=== PATIENT | male | born 1980 | race Caucasian/White ===

== ENCOUNTER 2020-04-12 19:43 | Observation (INO) ==
[2020-04-12] MEDS ORDERED: SODIUM CHLORIDE 0.9% 1000ML 1,000 ML IV ONE (20:10)
[2020-04-12] MEDS ORDERED: PROMETHAZINE 12.5 MG/50.5 ML BAG IV STA (20:10)
[2020-04-12] MEDS ORDERED: cefTRIAXone SODIUM 2,000 MG/70 ML BAG IV STA (20:10)
[2020-04-12] MEDS ORDERED: KETOROLAC TROMETHAMINE 15 MG/ML VIAL IV ONE (20:10)
[2020-04-12 20:21] LABS: Basophils # (auto) 0.04 K/uL (0-0.2); Basophils % (auto) 0.2 %; Eosinophils # (auto) 0.19 K/uL (0-0.5); Hematocrit (blood only) 47.5 % (42-52); Hemoglobin 15.6 g/dL (14.0-18.0); Immature Granulocytes # (auto) 0.07 K/uL (0.00-0.02); Immature Granulocytes % (auto) 0.4 %; Lymphocytes # (auto) 3.11 K/uL (1.2-3.4); Lymphocytes % (auto) 16.9 %; Mean Corpuscular Hemoglobin 29.7 pg (25-34); Mean Corpuscular Hgb Conc 32.8 g/dL (32-36); Mean Corpuscular Volume 90.3 fL (80-100); Mean Platelet Volume 10.7 fL (7.4-10.4); Monocytes # (auto) 1.02 K/uL (0.11-0.59); Monocytes % (auto) 5.6 %; Neutrophils # (auto) 13.93 K/uL (1.4-6.5); Neutrophils % (auto) 75.9 %; Platelet Count 356 K/uL (130-400); RDW Coefficient of Variation 13.7 % (11.5-14.5); RDW Standard Deviation 45.5 fL (36.4-46.3); Red Blood Count 5.26 M/uL (4.7-6.1); White Blood Count 18.36 K/uL (4.8-10.8)
--- NOTE | 2020-04-12 20:26 | Emergency Department Note ---
Impression & Plan Meningitis, Headache, Fever ED Provider Note NAME: ABHINAV GARCIA AGE: 39 SEX: M : 1980 ARRIVES VIA: Walk-In INFORMANT: Patient, ED PROVIDER(S): Dr. Micky Delgado CHIEF COMPLAINT: Headache HPI: The patient is a 39-year-old male who presented to the emergency department for an evaluation of a headache and fever. 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 He has had 4 episodes previous to this. He also co mplains of cough. He complains of generalized weakness and severe headache. He also states he has headache which is worsened with bending his neck. He complains of generalized body aches as well. He states the symptoms began yesterday and worsened throughout the day. He has been taking medication for fever such as [id number] ibuprofen and acetaminophen with some relief of his symptoms. The patient has no exposure to COVID-19 as far as he knows. He denies having any dysuria or frequency. He denies having any abdominal pain. The patient was not seen by provider prior to coming to the emergency department. He complains of photophobia as well. He describes the pain as "all over". ROS: See above HPI for pertinent positives & negatives. A total of 10 systems reviewed and were otherwise negative. PAST MEDICAL HISTORY: See Below PAST SURGICAL HISTORY: See Below FAMILY HISTORY: See Below SOCIAL HISTORY: See Below HOME MEDICATIONS: See Below ALLERGIES: See Below VITALS: See Below PHYSICAL EXAMINATION: GENERAL: The patient is awake and alert. He is very anxious appearing and appears to be in significant pain. EYES: The conjunctivae are clear. The pupils are round and reactive. EARS, NOSE, MOUTH AND THROAT: The nose is without any evidence of any deformity. NECK: The neck is nontender and supple. RESPIRATORY: Normal respiratory effort is noted there is no evidence of wheezing rhonchi or rales CARDIOVASCULAR: Regular rate and rhythm noted there no murmurs rubs or gallops normal S1 normal S2. GASTROINTESTINAL: The abdomen is soft. Abdomen is nontender. MUSCULOSKELETAL/EXTREMITIES: There is no evidence of gross deformity full range of motion is noted in the hips and shoulders. SKIN: There is no obvious evidence of any rash. There are no petechiae, pallor or cyanosis noted. NEUROLOGIC: Patient is awake alert and oriented x3 strength is symmetric patellar reflexes are 2+ bilaterally MEDICAL DECISION MAKING: The patient is a 39-year-old male who presented to the emergency department for an evaluation of headache and fever. The patient started having symptoms yesterday. He started having neck stiffness and body aches. The patient has a history of meningitis in the past. He recognized symptoms today is consistent with previous episodes of meningitis. For this reason he was initially treated with IV antibiotics IV Decadron IV fluids and IV pain medication. He was reevaluated multiple times. CT the head showed no acute disease. For this reason lumbar puncture was obtained. Lumbar puncture appears to be consistent with meningitis with an elevated white blood cell count in the CSF. There is also very elevated protein in the CSF. For this reason I feel this could be re lated to viral meningitis again but the patient was still having very severe headache despite treatment. For this reason I will discuss this case with the on-call [facility] hospitalist group. I discussed this with the patient and he was agreeable. Triage Nursing notes reviewed. Prior medical records reviewed Vital Signs: reviewed and remarkable for fever. Differential diagnosis: Migraine headache, meningitis, sinusitis, CO exposure, ICH, SAH, infection, tumor, headache, sinus thrombosis, arterial dissection, as well as other pathologies. ER treatment provided: See below Diagnostics interpreted by me: ECG: EKG was obtained in the emergency department. My interpretation is normal sinus rhythm at 93 bpm. There is no ectopy. There was no acute ST segment abnormalities noted. No previous tracing was available. Cardiac Monitoring: An order was placed for continuous cardiac monitoring. The monitor shows a rate of 75 beats per minute with sinus rhythm. Laboratory studies: As stated above and show below. Imaging studies: See below Consultation(s): [id number]: I discussed this case with Dr. John. ED COURSE: Procedures: Lumbar Puncture Indication: Fever and headache. Verbal consent was obtained after the risks and benefits were explained, including but not limited to headache, bleeding/clotting, scarring, infection, pain, and bone/joint/nerve damage. At this time, the risks of the procedure are less than the risks of NOT performing the procedure. A time out was taken and the correct patient and site identified. The patient was placed in the seated position and the back was prepped with betadine and draped in the standard fashion. The L3 intervertebral space was identified, anesthetized locally with 1% lidocaine without epinephrine, and the spinal needle was inserted through the skin with the bevel parallel to the dural fibers. The needle was carefully advanced into the lumbar cistern and 4 tubes of clear CSF was obtained. The stylet was replaced and the needle was removed. A bandaid was placed and the patient was placed in the supine position. The patient tolerated the procedure well and there were no complications. PDMP:reviewed and no issues Critical Care: I have personally spent greater than 45 minutes of critical care time in the direct management of this patient. This includes bedside care, interpretation of diagnostic studies, and testing, discussion with consultants, patient, and family members, and other required patient management activities. This 45 minutes is in excess of all separately billable procedures. Past Med/Surg History Medical History Viral meningitis Social History Smoking Status: Current every day smoker Preferred Language: Martiniquais Allergies Allergies Allergy/AdvReac Type Severity Reaction Status Date / Time No Known Allergies Allergy Verified 04/12/20 20:29 Home Meds Home Medications Medication Instructions Recorded Confirmed No Known Home Medications 04/12/20 04/12/20 Results & Data (ED) Vital Signs Vital Signs - 24 hr 04/12/20 19:47 04/12/20 20:18 04/12/20 21:30 Temperature 38.2 C H Temperature Source Oral Pulse Rate 113 H 70 Pulse Rate [Right Finger] 73 Pulse Rhythm Regular Respiratory Rate 18 16 Respiratory Effort / Characteristics Non-Labored Spontaneous Respiratory Depth Normal Respiratory Pattern Regular Blood Pressure 163/94 H Blood Pressure [Right Arm] 114/60 Blood Pressure Mean 117 Blood Pressure Mean [Right Arm] 78 Blood Pressure Position Sitting Blood Pressure Position [Right Arm] Lying Pulse Oximetry 97 94 98 Oxygen Delivery Method Room Air Room Air Room Air Sepsis Recent Fever Within 48 Hours Yes Sepsis New/Unexplained Change in Mental Status No Sepsis Action Taken by Nursing No Action Required 04/12/20 23:00 Temperature Temperature Source Pulse Rate Pulse Rate [Right Finger] 70 Pulse Rhythm Respiratory Rate 16 Respiratory Effort / Characteristics Respiratory Depth Respiratory Pattern Blood Pressure Blood Pressure [Right Arm] 115/67 Blood Pressure Mean Blood Pressure Mean [Right Arm] 83 Blood Pressure Position Blood Pressure Position [Right Arm] Lying Pulse Oximetry 96 Oxygen Delivery Method Room Air Sepsis Recent Fever Within 48 Hours Sepsis New/Unexplained Change in Mental Status Sepsis Action Taken by [facility] Medications Current Medication List: was personally reviewed by me Laboratory Data Attestation: I reviewed the patient's lab results. Result diagrams: 04/12/20 20:03 04/12/20 20:03 Lab Results 04/12/20 04/12/20 04/12/20 Range/Units 20:03 20:03 20:03 WBC 18.36 H (4.8-10.8) K/uL RBC 5.26 (4.7-6.1) M/uL Hgb 15.6 (14.0-18.0) g/dL Hct 47.5 (42-52) % MCV 90.3 (80-100) fL MCH 29.7 (25-34) pg MCHC 32.8 (32-36) g/dL RDW Std Deviation 45.5 (36.4-46.3) fL RDW Coeff of Lili 13.7 (11.5-14.5) % Plt Count 356 (130-400) K/uL MPV 10.7 H (7.4-10.4) fL Immature Gran % (Auto) 0.4 % Neut % (Auto) 75.9 % Lymph % (Auto) 16.9 % [place] % (Auto) 5.6 % Eos % (Auto) 1.0 % Baso % (Auto) 0.2 % Neut # (Auto) 13.93 H (1.4-6.5) K/uL Lymph # (Auto) 3.11 (1.2-3.4) K/uL [place] # (Auto) 1.02 H (0.11-0.59) K/uL Eos # (Auto) 0.19 (0-0.5) K/uL Baso # (Auto) 0.04 (0-0.2) K/uL Immature Gran # (Auto) 0.07 H (0.00-0.02) K/uL PT 10.6 (9.0-12.0) Seconds INR 1.0 (0.9-1.1) APTT 26.9 (21.0-31.0) Seconds PTT Ratio 1.0 Sodium 138 (136-145) mmol/L Potassium 4.0 (3.5-5.1) mmol/L Chloride 108 H (98-107) mmol/L Carbon Dioxide 26 (21-32) mmol/L Anion Gap 4.0 (3-11) BUN 11 (7-18) mg/dl Creatinine 1.04 (0.6-1.4) mg/dl Est Cr Clr Drug Dosing 111.2 ml/min Est GFR ( Amer) 102.9 Est GFR (Non-Af Amer) 88.8 BUN/Creatinine Ratio 10.6 (10-20) Glucose 110 H (70-99) mg/dl Lactate (0.4-2.0) mmol/L Calcium 9.5 (8.5-10.1) mg/dl Magnesium 1.8 (1.8-2.4) mg/dl Total Bilirubin 0.5 (0.2-1) mg/dl AST 17 (15-37) U/L ALT 30 (12-78) U/L Alkaline Phosphatase 74 (45-117) U/L Troponin I < 0.015 (0-0.045) ng/ml Total Protein 7.8 (6.4-8.2) gm/dl Albumin 4.0 (3.4-5.0) gm/dl Globulin 3.8 (2.5-4.0) gm/dl Albumin/Globulin Ratio 1.1 (0.9-2) Procalcitonin (0-0.5) ng/ml CSF Appearance CSF Color Xanthrochromic CSF WBC (0-5) /uL CSF RBC (0-) /uL CSF Cell Count Tube # CSF Mononuclear WBCs % CSF Polynuclear WBCs % CSF Chemistry Tube # CSF Glucose (40-70) mg/dl CSF Total Protein (15-45) mg/dl Anaplasma Smear See Comment Lyme Disease IgG Ab (Negative) Lyme Disease IgM Ab (Negative) COVID-19 Eval Order COVID-19 PCR (Negative) Influ A Molecular Assay (Negative) Influ B Molecular Assay (Negative) 04/12/20 04/12/20 04/12/20 Range/Units 20:03 20:45 20:54 WBC (4.8-10.8) K/uL RBC (4.7-6.1) M/uL Hgb (14.0-18.0) g/dL Hct (42-52) % MCV (80-100) fL MCH (25-34) pg MCHC (32-36) g/dL RDW Std Deviation (36.4-46.3) fL RDW Coeff of Lili (11.5-14.5) % Plt Count (130-400) K/uL MPV (7.4-10.4) fL Immature Gran % (Auto) % Neut % (Auto) % Lymph % (Auto) % [place] % (Auto) % Eos % (Auto) % Baso % (Auto) % Neut # (Auto) (1.4-6.5) K/uL Lymph # (Auto) (1.2-3.4) K/uL [place] # (Auto) (0.11-0.59) K/uL Eos # (Auto) (0-0.5) K/uL Baso # (Auto) (0-0.2) K/uL Immature Gran # (Auto) (0.00-0.02) K/uL PT (9.0-12.0) Seconds INR (0.9-1.1) APTT (21.0-31.0) Seconds PTT Ratio Sodium (136-145) mmol/L Potassium (3.5-5.1) mmol/L Chloride (98-107) mmol/L Carbon Dioxide (21-32) mmol/L Anion Gap (3-11) BUN (7-18) mg/dl Creatinine (0.6-1.4) mg/dl Est Cr Clr Drug Dosing ml/min Est GFR ( Amer) Est GFR (Non-Af Amer) BUN/Creatinine Ratio (10-20) Glucose (70-99) mg/dl Lactate 0.6 (0.4-2.0) mmol/L Calcium (8.5-10.1) mg/dl Magnesium (1.8-2.4) mg/dl Total Bilirubin (0.2-1) mg/dl AST (15-37) U/L ALT (12-78) U/L Alkaline Phosphatase (45-117) U/L Troponin I (0-0.045) ng/ml Total Protein (6.4-8.2) gm/dl Albumin (3.4-5.0) gm/dl Globulin (2.5-4.0) gm/dl Albumin/Globulin Ratio (0.9-2) Procalcitonin < 0.05 (0-0.5) ng/ml CSF Appearance CSF Color Xanthrochromic CSF WBC (0-5) /uL CSF RBC (0-) /uL CSF Cell Count Tube # CSF Mononuclear WBCs % CSF Polynuclear WBCs % CSF Chemistry Tube # CSF Glucose (40-70) mg/dl CSF Total Protein (15-45) mg/dl Anaplasma Smear Lyme Disease IgG Ab Negative (Negative) Lyme Disease IgM Ab Negative (Negative) COVID-19 Eval Order COVID-19 PCR (Negative) Influ A Molecular Assay Negative (Negative) Influ B Molecular Assay Negative (Negative) 04/12/20 04/12/20 04/12/20 Range/Units 20:54 20:54 21:50 WBC (4.8-10.8) K/uL RBC (4.7-6.1) M/uL Hgb (14.0-18.0) g/dL Hct (42-52) % MCV (80-100) fL MCH (25-34) pg MCHC (32-36) g/dL RDW Std Deviation (36.4-46.3) fL RDW Coeff of Lili (11.5-14.5) % Plt Count (130-400) K/uL MPV (7.4-10.4) fL Immature Gran % (Auto) % Neut % (Auto) % Lymph % (Auto) % [place] % (Auto) % Eos % (Auto) % Baso % (Auto) % Neut # (Auto) (1.4-6.5) K/uL Lymph # (Auto) (1.2-3.4) K/uL [place] # (Auto) (0.11-0.59) K/uL Eos # (Auto) (0-0.5) K/uL Baso # (Auto) (0-0.2) K/uL Immature Gran # (Auto) (0.00-0.02) K/uL PT (9.0-12.0) Seconds INR (0.9-1.1) APTT (21.0-31.0) Seconds PTT Ratio Sodium (136-145) mmol/L Potassium (3.5-5.1) mmol/L Chloride (98-107) mmol/L Carbon Dioxide (21-32) mmol/L Anion Gap (3-11) BUN (7-18) mg/dl Creatinine (0.6-1.4) mg/dl Est Cr Clr Drug Dosing ml/min Est GFR ( Amer) Est GFR (Non-Af Amer) BUN/Creatinine Ratio (10-20) Glucose (70-99) mg/dl Lactate (0.4-2.0) mmol/L Calcium (8.5-10.1) mg/dl Magnesium (1.8-2.4) mg/dl Total Bilirubin (0.2-1) mg/dl AST (15-37) U/L ALT (12-78) U/L Alkaline Phosphatase (45-117) U/L Troponin I (0-0.045) ng/ml Total Protein (6.4-8.2) gm/dl Albumin (3.4-5.0) gm/dl Globulin (2.5-4.0) gm/dl Albumin/Globulin Ratio (0.9-2) Procalcitonin (0-0.5) ng/ml CSF Appearance Clear CSF Color Colorless Xanthrochromic No xanthochromia CSF WBC 74 H* (0-5) /uL CSF RBC 0 (0-) /uL CSF Cell Count Tube # 3 CSF Mononuclear WBCs 97.0 % CSF Polynuclear WBCs 3.0 % CSF Chemistry Tube # CSF Glucose (40-70) mg/dl CSF Total Protein (15-45) mg/dl Anaplasma Smear Lyme Disease IgG Ab (Negative) Lyme Disease IgM Ab (Negative) COVID-19 Eval Order Covid19 Done at [facility] COVID-19 PCR NEGATIVE (Negative) Influ A Molecular Assay (Negative) Influ B Molecular Assay (Negative) 04/12/20 Range/Units 21:50 WBC (4.8-10.8) K/uL RBC (4.7-6.1) M/uL Hgb (14.0-18.0) g/dL Hct (42-52) % MCV (80-100) fL MCH (25-34) pg MCHC (32-36) g/dL RDW Std Deviation (36.4-46.3) fL RDW Coeff of Lili (11.5-14.5) % Plt Count (130-400) K/uL MPV (7.4-10.4) fL Immature Gran % (Auto) % Neut % (Auto) % Lymph % (Auto) % [place] % (Auto) % Eos % (Auto) % Baso % (Auto) % Neut # (Auto) (1.4-6.5) K/uL Lymph # (Auto) (1.2-3.4) K/uL [place] # (Auto) (0.11-0.59) K/uL Eos # (Auto) (0-0.5) K/uL Baso # (Auto) (0-0.2) K/uL Immature Gran # (Auto) (0.00-0.02) K/uL PT (9.0-12.0) Seconds INR (0.9-1.1) APTT (21.0-31.0) Seconds PTT Ratio Sodium (136-145) mmol/L Potassium (3.5-5.1) mmol/L Chloride (98-107) mmol/L Carbon Dioxide (21-32) mmol/L Anion Gap (3-11) BUN (7-18) mg/dl Creatinine (0.6-1.4) mg/dl Est Cr Clr Drug Dosing ml/min Est GFR ( Amer) Est GFR (Non-Af Amer) BUN/Creatinine Ratio (10-20) Glucose (70-99) mg/dl Lactate (0.4-2.0) mmol/L Calcium (8.5-10.1) mg/dl Magnesium (1.8-2.4) mg/dl Total Bilirubin (0.2-1) mg/dl AST (15-37) U/L ALT (12-78) U/L Alkaline Phosphatase (45-117) U/L Troponin I (0-0.045) ng/ml Total Protein (6.4-8.2) gm/dl Albumin (3.4-5.0) gm/dl Globulin (2.5-4.0) gm/dl Albumin/Globulin Ratio (0.9-2) Procalcitonin (0-0.5) ng/ml CSF Appearance CSF Color Xanthrochromic CSF WBC (0-5) /uL CSF RBC (0-) /uL CSF Cell Count Tube # CSF Mononuclear WBCs % CSF Polynuclear WBCs % CSF Chemistry Tube # 1 CSF Glucose 50 (40-70) mg/dl CSF Total Protein 156.1 H (15-45) mg/dl Anaplasma Smear Lyme Disease IgG Ab (Negative) Lyme Disease IgM Ab (Negative) COVID-19 Eval Order COVID-19 PCR (Negative) Influ A Molecular Assay (Negative) Influ B Molecular Assay (Negative) Administered Medications Discontinued Medications Dexamethasone (Dexamethasone Sod Inj 10 Mg/Ml Vial) 10 mg IV NOW ONE Stop: 04/12/20 20:31 Last Admin: 04/12/20 20:45 Dose: 10 mg Documented by: [id number] Hydromorphone HCl (Hydromorphone Inj 1 Mg/Ml Syringe) 1 mg IV NOW STA Stop: 04/12/20 21:55 Last Admin: 04/12/20 22:33 Dose: 1 mg Documented by: [id number] Sodium Chloride (Nss 1000ml) 1,000 mls @ 999 mls/hr IV .Q1H1M ONE Stop: 04/12/20 21:10 Last Infusion: 04/12/20 22:52 Dose: 0 mls/hr Documented by: [id number] Admin: 04/12/20 20:45 Dose: 999 mls/hr Documented by: [id number] Promethazine HCl (Phenergan) 12.5 mg in 50.5 mls @ 202 mls/hr IV NOW STA Stop: 04/12/20 20:24 Last Infusion: 04/12/20 21:28 Dose: 0 mls/hr Documented by: [id number] Admin: 04/12/20 20:45 Dose: 202 mls/hr Documented by: [id number] Ceftriaxone Sodium (Rocephin) 2,000 mg in 70 mls @ 140 mls/hr IV NOW STA Stop: 04/12/20 20:39 Last Infusion: 04/12/20 21:28 Dose: 0 mls/hr Documented by: [id number] Admin: 04/12/20 20:45 Dose: 140 mls/hr Documented by: [id number] Acyclovir Sodium 700 mg/ (Dextrose) 264 mls @ 250 mls/hr IV NOW ONE Stop: 04/13/20 00:01 Last Admin: 04/13/20 00:01 Dose: 250 mls/hr Documented by: [id number] Ketorolac Tromethamine (Ketorolac Tromethamine 15 Mg/Ml Vial) 10 mg IV NOW ONE Stop: 04/12/20 20:11 Last Admin: 04/12/20 20:45 Dose: 10 mg Documented by: [id number] Ondansetron HCl (Ondansetron Inj 2 Mg/Ml 2 Ml Vial) 4 mg IV NOW STA Stop: 04/12/20 21:56 Last Admin: 04/12/20 22:33 Dose: 4 mg Documented by: [id number] Imaging Data Radiologist's Impression: Patient: ABHINAV GARCIA (Male) : 76 Status: ER Date: 04/12/20 21:34 Room #: History: HEADACHE FEVER Slices: 57 Priors: Tech: Lynx, Matt @ [phone] Exams: CT HEAD Contrast: Accession Numbers: [id number] Preliminary Findings Only See Final Report For Complete Findings CT HEAD: No acute intracranial hemorrhage, edema or mass. No extra-axial fluid collection. No calvarial fracture. Obits, paranasal sinuses and mastoids are unremarkable. Radiologist: Marcelo Leger M.D. Study ready at 21:35 and initial results transmitted at 21:37 Patient: ABHINAV GARCIA Admit Date: 04/12/20 MR#: [id number] Address1: [address] [place] [address] Acct ID:[id number] Address2: Date: 1980 [facility] Zip: [place] [address] Age: 39 Location: ED Sex: M Room/Bed: Att Phy: Diagnosis: HEADACHE, NECK PAIN, Hx OF MENINGITIS Venessa Phy: PCP,NO Service Date: 04/12/20 Fam Phy: Interpreting Phy: Zander Root MD Admit Phy: Ordering Phy: Micky Delgado DO cc: ~ XR chest 1V portable CLINICAL HISTORY: SEPSIS COMPARISON STUDY: No previous studies for comparison. FINDINGS: Lung volumes are normal. Apparent hazy right basilar opacity is likely artifactual. There is no pneumothorax or pleural effusion. Cardiac size is normal. Mediastinal contours are normal. There is no evidence for pulmonary edema. Incidental note is made of an azygos fissure. IMPRESSION: No acute cardiopulmonary findings. Apparent hazy right basilar opacity which is likely artifactual. ACT 112: Negative or not required by law. Electronically signed by: Zander Root M.D. 04/12/2020 8:41 PM Dictated: 04/12/202039 Transcribed: 04/12/202039 Blood Pressure Blood Pressure Findings: Normal blood pressure Discharge Plan Visit Data Chief Complaint: Neck Injury/Pain Stated Complaint: HEADACHE, NECK PAIN, Hx OF MENINGITIS ED Provider: Micky Delgado Discharge Problem: Meningitis, Headache, Fever Patient Disposition: Being Evaluated by Hospitalist Condition: Good Forms Stand Alone Forms: [place] Social Prescriptions Prescriptions: No Action No Known Home Medications RF: 0 Referrals Referrals: PCP,NO [Primary Care Provider] -
[2020-04-12] MEDS ORDERED: DEXAMETHASONE SOD INJ 10 MG/ML VIAL IV ONE (20:30)
[2020-04-12 20:31] LABS: Partial Thromboplastin Time 26.9 Seconds (21.0-31.0); Prothrombin Time 10.6 Seconds (9.0-12.0)
[2020-04-12 20:42] LABS: Alanine Aminotransferase 30 U/L (12-78); Aspartate Aminotransferase 17 U/L (15-37); BUN Creatinine Ratio 10.6 (10-20); Blood Urea Nitrogen 11 mg/dl (7-18); Calcium 9.5 mg/dl (8.5-10.1); Carbon Dioxide 26 mmol/L (21-32); Chloride 108 mmol/L (98-107); Creatinine Clr Calc Pharmacy 111.2 ml/min; Est GFR (African American) 102.9; Est GFR (Non-African American) 88.8; Glucose 110 mg/dl (70-99); Magnesium 1.8 mg/dl (1.8-2.4); Sodium 138 mmol/L (136-145)
--- NOTE | 2020-04-12 20:42 | XRay Report ---
XR chest 1V portable CLINICAL HISTORY: SEPSIS COMPARISON STUDY: No previous studies for comparison. FINDINGS: Lung volumes are normal. Apparent hazy right basilar opacity is likely artifactual. There i s no pneumothorax or pleural effusion. Cardiac size is normal. Mediastinal contours are normal. There is no evidence for pulmonary edema. Incidental note is made of an azygos fissure. IMPRESSION: No acute cardiopulmonary findings. Apparent hazy right basilar opacity which is likely a rtifactual. ACT 112: Negative or not required by law. Electronically signed by: Zander Root M.D. 04/12/2020 8:41 PM
[2020-04-12 20:47] LABS: Albumin Globulin Ratio 1.1 (0.9-2); Alkaline Phosphatase 74 U/L (45-117); Bilirubin,Total 0.5 mg/dl (0.2-1); Globulin 3.8 gm/dl (2.5-4.0); Total Protein 7.8 gm/dl (6.4-8.2); Troponin I < 0.015 ng/ml (0-0.045)
[2020-04-12 21:15] LABS: Procalcitonin < 0.05 ng/ml (0-0.5)
[2020-04-12 21:45] LABS: Lyme Ab IgG w/WB Rflx Negative (Negative); Lyme Ab IgM w/WB Rflx Negative (Negative)
[2020-04-12 21:54] LABS: Influenza A virus by PCR Negative (Negative); Influenza B virus by PCR Negative (Negative)
[2020-04-12] MEDS ORDERED: HYDROmorphone INJ 1 MG/ML SYRINGE IV STA (21:54)
[2020-04-12] MEDS ORDERED: ONDANSETRON INJ 2 MG/ML 2 ML VIAL IV STA (21:55)
[2020-04-12 22:44] LABS: Total Protein CSF 156.1 mg/dl (15-45)
[2020-04-12] MEDS ORDERED: ACYCLOVIR SOD 700 MG in DEXTROSE 5% 250 ML IV ONE (22:58)
[2020-04-12 23:11] LABS: Appearance CSF Clear; CSF Count Tube # 3; CSF Xanthrochromic No xanthochromia; Color CSF Colorless; Red Blood Cell CSF (A) 0 /uL (0-); Red Blood Cell CSF (B) 0 /uL (0-); White Blood Cell CSF (B) 68 /uL (0-5)
[2020-04-12 23:12] LABS: White Blood Cell CSF (A) 74 /uL (0-5)
[2020-04-13] MEDS: fentaNYL citrate 100 MCG/2 ML VIAL IV PRN ×2 (00:58→01:16)
[2020-04-13 02:07] LABS: Cryptococcus neoformans/ga PCR Not Detected (NotDetected); Cytomegalovirus PCR Not Detected (NotDetected); Enterovirus PCR Not Detected (NotDetected); Escherichia coli K1 PCR Not Detected (NotDetected); Haemophilius influenzae PCR Not Detected (NotDetected); Herpes Simplex Virus 1 PCR Not Detected (NotDetected); Human Herpes Virus 6 PCR Not Detected (NotDetected); Human Parechovirus PCR Not Detected (NotDetected); Listeria monocytogenes PCR Not Detected (NotDetected); Neisseria meningitidis PCR Not Detected (NotDetected); Streptococcus agalactiae PCR Not Detected (NotDetected); Streptococcus pneumoniae PCR Not Detected (NotDetected); Varicella Zoster Virus PCR Not Detected (NotDetected)
[2020-04-13] MEDS ORDERED: VANCOMYCIN HCL 1,000 MG in SODIUM CHLORIDE 0.9% 250 ML IV SCH ×2 (02:18→12:00)
[2020-04-13] MEDS ORDERED: ACYCLOVIR SOD IV SCH (02:18)
[2020-04-13] MEDS ORDERED: VANCOMYCIN CONSULT ACTIVE PRN (02:18)
[2020-04-13] MEDS ORDERED: ONDANSETRON INJ 2 MG/ML 2 ML VIAL IV PRN (02:18)
[2020-04-13] MEDS ORDERED: DEXTROSE 5% IV SCH (02:18)
[2020-04-13] MEDS ORDERED: ACETAMINOPHEN 325 MG TAB PO PRN (02:18)
[2020-04-13] MEDS ORDERED: NSS + 20MEQ KCL 20 MEQ/1,000 ML BAG IV SCH (02:18)
[2020-04-13 02:31] LABS: Herpes Simplex Virus 2 PCR DETECTED (NotDetected)
[2020-04-13] MEDS ORDERED: ACYCLOVIR SOD IV ONE (03:00)
[2020-04-13] MEDS ORDERED: DEXTROSE 5% IV ONE (03:00)
[2020-04-13] MEDS: oxyCODONE HCL IR 5 MG TAB (IMMEDIATE RELEASE) PO PRN ×2 (03:19→07:37)
[2020-04-13] MEDS: HYDROmorphone INJ 1 MG/ML SYRINGE IV PRN ×3 (03:20→10:13)
--- NOTE | 2020-04-13 03:21 | History & Physical Report ---
Date of Service April 13, 2020 Assessment & Plan (1) Viral meningitis: Admit to monitored bed. Decadron 6 mg IV every 6 hours Acyclovir 10 mg/kg IV every 8 hours Vancomycin IV per pharmacokinetic monitoring Ceftriaxone 2 g IV every 12 hours NSS + KCl 20 mEq at 100 mils per hour Acetaminophen 650 mg p.o. every 6 hours as needed mild pain or temperature Oxycodone 5 mg p.o. every 4 hours as needed moderate pain Dilaudid 1 mg IV every 3 hours as needed severe pain Consult neurology Present on Admission?: Yes Admission and Anticipated Discharge Date Admission Date: April 13, 2020 History of Present Illness Chief Complaint: The patient presents to the emergency department due to complaint of generalized weakness, severe headache, generalized body aches and fever, similar to his previous 4 episodes of viral meningitis. Primary Care Provider: NO PCP The patient is a 39-year-old male with a past medical history including viral meningitis x4, who presents to the emergency department with similar symptoms as before. Patient did undergo the following work-up while in the ED: Negative COVID-19 test, influenza test, Lyme test, chest x-ray and CT of head. He also underwent a lumbar puncture with findings suggestive of viral meningitis. He was started empirically on Decadron IV, ceftriaxone IV and acyclovir IV by the ED. Allergies Allergy/AdvReac Type Severity Reaction Status Date / Time No Known Allergies Allergy Verified 04/12/20 20:29 Home Medications Home Medications Medication Instructions Recorded Confirmed Type No Known Home Medications 04/12/20 04/12/20 History Past Med/Surg History Medical History Viral meningitis Social History Smoking Status: Current every day smoker Second Hand Exposure: Yes; Do You Dip or Chew Tobacco: No; Tobacco Cessation Education Requested by Patient: No Hx Alcohol Use: Yes Alcohol type: beer and hard liquor Hx Substance Use: Yes Last Used Substance: Hours (ago) Preferred Language: Israeli Communication Ability: Effective Food Assembler Kitchen Required: No Beliefs That Will Affect Care: None Current Living Situation: Spouse Feels Safe at Home: Yes Assistive Devices: None Review of Systems Review of Systems: The patient denies chest pain, palpitations, shortness of breath, dyspnea on exertion, cough, lower extremity swelling, sore throat, fevers, chills, sweats, nausea, vomiting, diarrhea , constipation, abdominal pain, pelvic pain, blood in urine or stool, dysuria, urinary frequency or urgency, memory loss, loss of consciousness, rash, abnormal bruising or bleeding, imbalance, focal weakness, numbness or tingling in arms or legs, generalized arthralgias or myalgias, or night sweats. The review of systems is otherwise negative other than for that already noted above, and at least 10 systems have been reviewed. Physical Exam Physical Exam: The patient is awake, alert and oriented 3, well developed and well nourished, normocephalic and atraumatic, lying in bed and in no acute distress. HEENT--PERRL, EOMI, mucous membranes and oropharynx dry. Neck--supple. No JVD. No bruits. Thyroid normal, trachea midline, no adenopathy. Heart--normal S1 and S2. No murmurs, rubs or gallops. Lungs--clear bilaterally, no respiratory distress, no accessory muscle use. Abdomen--normal bowel sounds and soft. Nontender. Nondistended, no hernias or masses, no organomegaly. Extremities--no cyanosis or clubbing. No edema. Dermatologic--normal skin turgor, normal color, no abnormal lymph nodes, no rash. Neurologic--cranial nerves II through XII grossly intact. Rheumatologic--normal range of motion. Psychiatric--normal affect. Results & Data Results & Data ([facility]) Vital Signs (Past 12 Hours) Vital Signs Temp Pulse Pulse Resp BP BP Pulse Ox 04/13/20 01:27 80 18 125/63 98 04/13/20 01:00 90 18 130/79 96 04/12/20 23:00 70 16 115/67 96 04/12/20 21:30 73 16 114/60 98 04/12/20 20:18 70 94 04/12/20 19:47 100.8 F H 113 H 18 163/94 H 97 Laboratory Results Laboratory Results WBC 18.36 K/uL (4.8-10.8) H 04/12/20 20:03 RBC 5.26 M/uL (4.7-6.1) 04/12/20 20:03 Hgb 15.6 g/dL (14.0-18.0) 04/12/20 20: Hct 47.5 % (42-52) 04/12/20 20: MCV 90.3 fL (80-100) 04/12/20 20: MCH 29.7 pg (25-34) 04/12/20 20: MCHC 32.8 g/dL (32-36) 04/12/20 20: RDW Std Deviation 45.5 fL (36.4-46.3) 04/12/20 RDW Coeff of Lili 13.7 % (11.5-14.5) 04/12/20: Plt Count 356 K/uL (130-400) 04/12/20: MPV 10.7 fL (7.4-10.4) H 04/12/20 20: Immature Gran % (Auto) 0.4 % 04/12/20 20: Neut % (Auto) 75.9 % 04/12/20: Lymph % (Auto) 16.9 % 04/12/20: Jennings % (Auto) 5.6 % 04/12/20 20: Eos % (Auto) 1.0 % 04/12/20 20: Baso % (Auto) 0.2 % 04/12/20 20: Neut # (Auto) 13.93 K/uL (1.4-6.5) H 04/12/20 20: Lymph # (Auto) 3.11 K/uL (1.2-3.4) 04/12/20 20: Jennings # (Auto) 1.02 K/uL (0.11-0.59) H 04/12/20 20: Eos # (Auto) 0.19 K/uL (0-0.5) 04/12/20 20: Baso # (Auto) 0.04 K/uL (0-0.2) 04/12/20 20: Immature Gran # (Auto) 0.07 K/uL (0.00-0.02) H 04/12/20 20: PT 10.6 Seconds (9.0-12.0) 04/12/20 20: INR 1.0 (0.9-1.1) 04/12/20 20:03 APTT 26.9 Seconds (21.0-31.0) 04/12/20 20:03 PTT Ratio 1.0 04/12/20 20:03 Sodium 138 mmol/L (136-145) 04/12/20 20:03 Potassium 4.0 mmol/L (3.5-5.1) 04/12/20 20:03 Chloride 108 mmol/L (98-107) H 04/12/20 20:03 Carbon Dioxide 26 mmol/L (21-32) 04/12/20 20:03 Anion Gap 4.0 (3-11) 04/12/20 20:03 BUN 11 mg/dl (7-18) 04/12/20 20:03 Creatinine 1.04 mg/dl (0.6-1.4) 04/12/20 20: Est Cr Clr Drug Dosing 111.2 ml/min 04/12/20 20:03 Est GFR ( Amer) 102.9 04/12/20 20:03 Est GFR (Non-Af Amer) 88.8 04/12/20 20:03 BUN/Creatinine Ratio 10.6 (10-20) 04/12/20 20:03 Glucose 110 mg/dl (70-99) H 04/12/20 20:03 Lactate 0.6 mmol/L (0.4-2.0) 04/12/20 20:45 Calcium 9.5 mg/dl (8.5-10.1) 04/12/20 20:03 Magnesium 1.8 mg/dl (1.8-2.4) 04/12/20 20:03 Total Bilirubin 0.5 mg/dl (0.2-1) 04/12/20 20:03 AST 17 U/L (15-37) 04/12/20 20:03 ALT 30 U/L (12-78) 04/12/20 20:03 Alkaline Phosphatase 74 U/L (45-117) 04/12/20 20:03 Troponin I < 0.015 ng/ml (0-0.045) 04/12/20 20:03 Total Protein 7.8 gm/dl (6.4-8.2) 04/12/20 20:03 Albumin 4.0 gm/dl (3.4-5.0) 04/12/20 20:03 Globulin 3.8 gm/dl (2.5-4.0) 04/12/20 20:03 Albumin/Globulin Ratio 1.1 (0.9-2) 04/12/20 20:03 Procalcitonin < 0.05 ng/ml (0-0.5) 04/12/20 20:03 CSF Appearance Clear 04/12/20 21:50 CSF Color Colorless 04/12/20 21:50 Xanthrochromic No xanthochromia 04/12/20 21:50 CSF WBC 74 /uL (0-5) H* 04/12/20 21:50 CSF RBC 0 /uL (0-) 04/12/20 21:50 CSF Cell Count Tube # 3 04/12/20 21:50 CSF Mononuclear WBCs 97.0 % 04/12/20 21:50 CSF Polynuclear WBCs 3.0 % 04/12/20 21:50 CSF Chemistry Tube # 1 04/12/20 21:50 CSF Glucose 50 mg/dl (40-70) 04/12/20 21:50 CSF Total Protein 156.1 mg/dl (15-45) H 04/12/20 21:50 CSF C.neoform/gat PCR Not Detected (NotDetected) 04/12/20 21:50 CSF CMV DNA (PCR) Not Detected (NotDetected) 04/12/20 21:50 CSF Enterovirus (PCR) Not Detected (NotDetected) 04/12/20 21:50 CSF E. coli K1 (PCR) Not Detected (NotDetected) 04/12/20 21:50 CSF H. influenzae (PCR) Not Detected (NotDetected) 04/12/20 21:50 CSF HSV I (PCR) Not Detected (NotDetected) 04/12/20 21:50 CSF HSV II (PCR) DETECTED (NotDetected) A* 04/12/20 21:50 CSF HHV 6 (PCR) Not Detected (NotDetected) 04/12/20 21:50 CSF L.monocytogenes PCR Not Detected (NotDetected) 04/12/20 21:50 CSF N. meningitidis PCR Not Detected (NotDetected) 04/12/20 21:50 CSF Parechovirus (PCR) Not Detected (NotDetected) 04/12/20 21:50 CSF S. agalactiae (PCR) Not Detected (NotDetected) 04/12/20 21:50 CSF S. pneumoniae (PCR) Not Detected (NotDetected) 04/12/20 21:50 CSF VZV DNA (PCR) Not Detected (NotDetected) 04/12/20 21:50 Anaplasma Smear See Comment 04/12/20 20:03 Lyme Disease IgG Ab Negative (Negative) 04/12/20 20:03 Lyme Disease IgM Ab Negative (Negative) 04/12/20 20:03 COVID-19 Eval Order Covid19 Done at [facility] 04/12/20 20:54 COVID-19 PCR NEGATIVE (Negative) 04/12/20 20:54 Influ A Molecular Assay Negative (Negative) 04/12/20 20:54 Influ B Molecular Assay Negative (Negative) 04/12/20 20:54 Diagnostic Findings [facility], [phone] XRay Report Patient: ABHINAV GARCIAAdmit Date: 04/12/20MR#: [id number]: [address] [facility]ct ID:[id number]: Date: 1980[facility] Zip: [place] [id number]: 39Location: EDSex: MRoom/Bed:Att Phy:Diagnosis: HEADACHE, NECK PAIN, Hx OF MENINGITISPri Phy: PCP,NOService Date: 04/12/20Fa Phy:Interpreting Phy: Zander Root MDAdmit Phy: Ordering Phy: Micky Delgado DO cc: ~ XR chest 1V portable CLINICAL HISTORY: SEPSIS COMPARISON STUDY: No previous studies for comparison. FINDINGS: Lung volumes are normal. Apparent hazy right basilar opacity is likely artifactual. There is no pneumothorax or pleural effusion. Cardiac size is no rmal. Mediastinal contours are normal. There is no evidence for pulmonary edema. Incidental note is made of an azygos fissure. IMPRESSION: No acute cardiopulmonary findings. Apparent hazy right basilar opacity which is likely artifactual. ACT 112: Negative or not required by law. Electronically signed by: Zander Root M.D. 04/12/2020 8:41 PM Dictated: 04/12/202039Transcribed: 04/12/202039 [facility] Patient: ABHINAV GARCIA (Male) : 76 Status: ER Date: 04/12/20 21:34 Room #: History: HEADACHE FEVER Slices: 57 Priors: Tech: Randolph Lowery @ [phone] Exams: CT HEAD Contrast: Accession Numbers: [id number] Preliminary Findings Only See Final Report For Complete Findings CT HEAD: No acute intracranial hemorrhage, edema or mass. No extra-axial fluid collection. No calvarial fracture. Obits, paranasal sinuses and mastoids are unremarkable. Radiologist: Marcelo Leger M.D. Study ready at 21:35 and initial results transmitted at 21:37 *This report constitutes a preliminary interpretation only. Non-acute findings felt to be unrelated to the clinical presentation may not be discussed in this report. The study will be interpreted and a final report will be generated by the local Radiologist the following shift. To reach the hospital radiology department call [phone]. If a discrepancy is found between the preliminary and final interpretations of this study, please notify us via our Client Portal at [email or web address] QA [email or web address].You can also fax this report with a description of the discrepancy, or include the final report, to our daytime fax number [phone].If faxing, please indicate the severity of discrepancy using one of the following categories: [ ] 1 - Agree/Informational [ ] 2 - Unlikely to Affect Management [ ] 3 - Possible Eventual Change of Management [ ] 4 - Probable Immediate Change of Management For all other patient related information, please fax us at [phone]. [id number] Code Status & VTE Plan Code Status Full code VTE Prophylaxis Plan VTE Prophylaxis will be ordered: Yes PG Care Time/CCT Total # of Minutes Spent Total Time Spent with Patient: Total time spent is greater than 50% in coordination of care (as documented) at patient's floor/unit and/or counseling patient: Coding Level of Care Code 21992 Initial Inpt Care Lvl 3 Diagnoses Viral meningitis A87.9
[2020-04-13] MEDS: dexAMETHasone 6 MG in SYRINGE 0 ML IV SCH ×2 (03:27→07:40)
[2020-04-13] MEDS ORDERED: VANCOMYCIN HCL 2,500 MG in SODIUM CHLORIDE 0.9% 500 ML IV SCH (04:00)
--- NOTE | 2020-04-13 06:52 | CT Scan Report ---
CT head/brain wo con CLINICAL HISTORY: fever HEADACHE COMPARISON STUDY: No previous studies for comparison. TECHNIQUE: Axial CT of the brain is performed from the vertex to the skull base. IV contrast was not administered for this examination. A dose lowering technique was utilized adhering to the principles of ALARA. CT DOSE: 537.48 mGy.cm FINDINGS: No intra or extra-axial mass lesions are visualized. There is no CT evidence of acute cortical infarc tion. There is no evidence of midline shift. There is no acute hemorrhage. No calvarial fractures ar e visualized. There is no evidence of pathologic ventricular dilatation. There is no evidence of acute sinusitis IMPRESSION: No acute intracranial findings ACT 112: Negative or not required by law. Electronically signed by: Arsen oDminguez M.D. 04/13/2020 6:50 AM
[2020-04-13] MEDS ORDERED: ACYCLOVIR SOD 1,000 MG in DEXTROSE 5% 250 ML IV SCH (08:00)
--- NOTE | 2020-04-13 08:13 | Neurology Consultation ---
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 His fever is improved but he still has his headache today. On neurologic examination he has no focal findings, mild meningeal signs, and no encephalopathy. This is not an encephalitis. With the CSF showing elevated lymphocytes, significant increased protein, and positive HSV 2 PCR, this is a type of herpes meningitis. 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 This is the most common form of recurrent aseptic meningitis and tends to have headaches, meningismus, fever ( which is not always present), with spontaneous remission of symptoms and no permanent neurologic sequelae. There is no evidence for other types of current meningitis in this patient and he has no history of immunodeficiency or other chronic medical problems (although he is a persistent smoker). He has no history of central nervous system surgery, implantable devices, or head trauma such as could have caused a skull fracture. He has no history of recurrent CSF leak. Recommendations: 1. Continue IV acyclovir at least for 24 hours. There is no data that suggest acyclovir shortens these episodes and they tend to spontaneously resolve by 3-5 days anyway. 2. As cultures come back negative for bacteria, discontinue vancomycin and ceftriaxone. 3. I am not certain that high-dose Decadron is indicated. I would taper him down to a lower dose for a day or so. 4. Increase activity as able however this may make his headaches worse. 5. Treat headache as you are doing. 6. there is some data that treating patients with Roche its meningitis with oral acyclovir ( 500 to 1000 daily) can decrease the frequency of these meningitis attacks. However, the patient is getting these every 4-5 years now and I am not certain that giving him oral acyclovir makes any sense. Patient does not want to take this anyway. 7. could consider C3, C4, CH 50, total IgG, IgA, and IgM levels 8. Could consider MRI of the brain with without contrast. I believe the patient wants to hold off on this for now. Overall, I spent a total of 90 minutes with this case including review of records, review of CT films, direct evaluation the patient bedside, and discussion of the case with the patient at bedside, RN at bedside, and Dr. Cast, including differential diagnosis and treatment options. History of Present Illness Reason for Consultation: Patient is a 39-year-old, who I was asked to see at the request of Dr. Park, for neurologic consultation regarding meningitis. Requesting Physician: Dr. Park Attending Physician: Erasmo Park MD History of Present Illness this patient has a history of genital herpes back in the mid . Not too long after that healed he had an episode of meningitis. It was supposedly viral as no organisms was detected during his hospitalization with spinal tap and other testing. at that time, he was in [place], [place]. He had a severe headache and fever with some neck pain and tightness and photophobia. By 6 days he was back to baseline. He has had 2 other occasions of severe headache and stiff neck with fever resulting in a diagnosis of meningitis (aseptic or viral ) as no organisms ever have grown from the CSF. Again, this all was in the state of [place]. Each episode was anywhere from 3-5 years apart. He did very well with his last episode at least 5 years ago. The patient has occasional mild to moderate headaches and some chronic neck and shoulder pain from his work. The headaches tend to be in the morning when he wakes up in the last an hour so responding to Tylenol. They been intermittent but more recently have been as much as several times per week. Again, [id number] medication resolved these headaches. He woke up in the morning of April 11 with a headache. He went to work but it got worse and he noted that he was not responding to the over the counter medication he usually takes ( Tylenol/Aleve/Advil). On April 12 he had worsening generalized headache of a significant pounding nature associated with photophobia and some neck pain. Headache increased with movement of the head and neck. He did not admit to arthralgias or myalgias, weakness of the limbs, numbness, vision problems, speech issues, or mentation problems. He arrived to the emergency room April 12 at 1947 with a temperature of 38.2, pulse 113, respiratory rate 18, blood pressure 163/94, and O2 saturation 97 percent. He was described as fully oriented, anxious and in pain with the headache. His neck was supple although it gave him discomfort. He had no joint issues or rashes. CSF showed 74 white cells ( 97 percent monocytes), glucose of 50, protein of 156, and a negative Gram stain. PCR testing was negative except for positive HSV 2 CT scan of the head was unremarkable and chest x-ray was unremarkable. He was given Decadron, vancomycin, ceftriaxone, and acyclovir. This morning he still has a headache of a generalized nature but has no other issues. He is afebrile this morning and heart rate has been normal sinus rhythm in the 60s to 80s. Blood pressure is 125/80. The patient has no history of significant head trauma or skull fractures. He has nothing to suggest CSF leaking or persistent sinusitis. There is no family history of meningitis. He has no history of medical issues or problems or anything that could indicate an immune deficiency state. Allergies Allergy/AdvReac Type Severity Reaction Status Date / Time No Known Allergies Allergy Verified 04/12/20 20:29 Home Medications Home Medications Medication Instructions Recorded Confirmed Type No Known Home Medications 04/12/20 04/12/20 History Patient History Medical History Viral meningitis Surgical History H/O hand surgery Family History Mother , age 59 of COPD COPD (chronic obstructive pulmonary disease) Social History Smoking Status: Current every day smoker Tobacco Type: Cigarettes packs per day: 1; Years Smoked: 20; Second Hand Exposure: Yes; Do You Dip or Chew Tobacco: No; Tobacco Cessation Education Requested by Patient: No Hx Alcohol Use: Yes Alcohol type: beer and hard liquor Alcohol Intake Frequency: 4 or More x per/Week Alcohol Intake Frequency Comment: approximately 10 drinks per weekend Hx Substance Use: Yes Last Used Substance: Hours (ago) Preferred Language: Rwandan Communication Ability: Effective Culinary Director Required: No Beliefs That Will Affect Care: None Current Living Situation: Spouse current occupational status: employed current occupation: warehouse insulation worker Feels Safe at Home: Yes Assistive Devices: None Review of Systems Constitutional: + fatigue and + malaise; no fever and no weakness Eyes: no diplopia, no eye pain and no worsening vision Ear, Nose, Mouth, Throat: no ear pain, no tinnitus, no hearing loss, no dizziness, no hoarseness and no dysphagia Respiratory: no cough and no dyspnea Cardiovascular: no chest pain, no palpitations and no lightheadedness Gastrointestinal: no abdominal pain, no nausea and no vomiting Genitourinary: no dysuria and no urinary incontinence Musculoskeletal: + neck pain; no back pain, no radicular pain, no joint pain and no myalgia Integumentary: no rash and no lesions Neurologic: + headache(s); no gait abnormality, no localized weakness, no generalized weakness, no tingling, no numbness, no tremor(s), no abnormal movements, no abnormal speech, no confusion and no memory loss Psychiatric: no depression, no irritability, no anxiety, no difficulty concentrating, no confusion and no hallucinations Endocrine: no fatigue and no flushing Hematologic / Lymphatic: no easy bleeding and no easy bruising Allergy / Immunological: no urticaria and no problem reported Exam (Neuro) Physical Exam: The patient is right-handed. The patient is awake, alert, and attentive. Speech is normal without any aphasia or dysarthria. She can name objects, repeat phrases, and has normal spontaneous speech. Mentation and thought processes are intact, with orientation to person, place and time, and normal fund of knowledge. Attention and concentration are normal. Mood and affect are normal and appropriate. General appearance and gr ooming are normal. Short and long-term memory are intact. The discs are sharp with positive venous pulsations bilaterally. There are no exudates, hemorrhages, or blood vessel changes seen. Pupils are 4 mm bilaterally and reactive to light. Extraocular eye muscles are intact without nystagmus. Visual acuity and visual villagomez seem normal grossly to confrontation. There are no deficits to sensation in the face in all 3 distributions of the fifth cranial nerve bilaterally. Corneal reflexes are positive bilaterally. Facial strength and symmetry was normal bilaterally. Hearing seems normal to whisper and finger rub bilaterally. Palate moves well without asymmetry. There is normal sternocleidomastoid and trapezius (shoulder shrug) strength bilaterally. Tongue is midline with good strength bilaterally. Neck has a full range of motion and is supple, but has discomfort with movement. There are no cervical bruits bilaterally. There are no cranial or ocular bruits. Heart is without murmur. There is a regular rhythm and rate. Cervical, thoracic, and lumbar spine are nontender to palpation. Gait was not tested but stance sitting up in bed is normal. With outstretched arms there is no drift. There are no resting, postural, or action tremors. There is no ataxia with finger to nose testing. There is good facility in the hands. No other abnormal involuntary movements are noted. Motor strength is 5/5 diffusely in the arms bilaterally including deltoids, biceps, triceps, brachioradialis, wrist flexors and extensors, picker / packer, and intrinsic hand muscles. Motor strength is 5/5 diffusely in the legs bilaterally including hip flexors, quadriceps, hamstrings, gastrocnemius, tibialis anterior, tibialis posterior, and Peroneii muscles. Toe extensors are normal and there is good bulk in the extensor digitorum brevis muscles bilaterally. The limbs have good tone without rigidity or spasticity. There is no atrophy noted in the muscles. Muscle bulk is normal, there is no tenderness to palpa tion, no myotonia to percussion, and no fasciculations seen. Sensory examination is intact to touch and pin throughout all 4 limbs diffusely. Reflexes are 2/4 in the biceps, triceps, brachioradialis, quadriceps, and Achilles tendons bilaterally. There is no clonus bilaterally. Toes are downgoing with plantar stimulation bilaterally. Peripheral pulses are present and of normal quality distally in all 4 limbs. There is no peripheral edema noted in the limbs. Results & Data ([facility]) Vital Signs (Past 12 Hours) Vital Signs Temp Pulse Pulse Resp BP BP BP 04/13/20 08:00 37.2 C 89 20 125/80 04/13/20 05:11 72 04/13/20 02:37 37.1 C 82 20 137/81 04/13/20 02:18 37.1 C 73 18 130/79 04/13/20 01:27 80 18 125/63 04/13/20 01:00 90 18 130/79 04/12/20 23:00 70 16 115/67 04/12/20 21:30 73 16 114/60 04/12/20 20:18 70 Pulse Ox Pulse Ox 04/13/20 08:00 97 04/13/20 05:11 04/13/20 02:37 97 04/13/20 02:18 97 97 04/13/20 01:27 98 04/13/20 01:00 96 04/12/20 23:00 96 04/12/20 21:30 98 04/12/20 20:18 94 PG Care Time/CCT Total # of Minutes Spent Total Time Spent with Patient: Total time spent is greater than 50% in coordination of care (as documented) at patient's floor/unit and/or counseling patient: Coding Level of Care Code 06706 Inpt Consult Level 5 Diagnoses Viral meningitis A87.9 Headache R51.9 Headache chronicity pattern: acute headache Headache type: unspecified Intractability: not intractable Fever R50.9 Fever type: unspecified Time Spent (min) 90 (1) Headache Headache chronicity pattern: acute headache Headache type: unspecified Intractability: not intractable Qualified Code(s): R51.9 - Headache, unspecified (2) Fever Fever type: unspecified Qualified Code(s): R50.9 - Fever, unspecified
[2020-04-13] MEDS ORDERED: ENOXAPARIN INJ 40 MG/0.4 ML SYR SQ SCH (09:00)
[2020-04-13] MEDS ORDERED: cefTRIAXone SODIUM 2,000 MG in DEXTROSE 5% 50 ML IV SCH (09:00)
[2020-04-13 10:01] LABS: Appearance Urine Clear (Clear); Bilirubin Urine Negative (Negative); Blood Urine Negative (Negative); Color Urine Dark Yellow; Glucose Urine UA Negative (Negative); Ketones Urine Negative (Negative); Leukocyte Esterase Urine Negative (Negative); Nitrite Urine Negative (Negative); Protein Urine Negative (Negative); Specific Gravity Urine 1.031 (1.000-1.030); Urobilinogen Urine Negative (Negative)
[2020-04-13] MEDS ORDERED: CALCIUM CARBONATE 500 MG CHEWABLE TAB PO PRN (10:50)
--- NOTE | 2020-04-13 10:56 | Pharmacy Report ---
Pharmacy Abx Dose Short Note - Date of Service April 13, 2020 - Assessment & Plan Assessment 39 year old M receiving vancomycin/ rocephin 2g IV q12h / acyclovir 10mg/kg IV q8h for treatment of meningitis. Per neurology note: "with the CSF showing elevated lymphocytes, significant increased protein, and positive HSV 2 PCR, this is a type of herpes meningitis. Continue IV acyclovir at least for 24 hours. There is no data that suggest acyclovir shortens these episodes and they tend to spontaneously resolve by 3-5 days anyway.As cultures come back negative for bacteria, discontinue vancomycin and ceftriaxone". Will monitor cultures for opportunities for de-escalation. CSF gram stain currently with no organisms seen. Day # 1 of antimicrobial therapy. Plan Vancomycin * Loading dose of 2500mg administered at ~0400 * Initiate dose of 1000 mg IV every 8 hours ~1200 * Trough or random level ordered for: 04/14/20 @1139 Pharmacy will continue to follow and will adjust dose/frequency as necessary. Thank you.
--- NOTE | 2020-04-13 11:09 | Medical Student Progress Note ---
Date of Service April 13, 2020 Assessment & Plan (1) Viral meningitis: The pt's presentation with fever, headache and neck stiffness was consistent with meningitis. CBC showed elevated WBC count and the LBP was suggestive of a viral meningitis such as the pt had had previously. 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 Without any focal findings or encephalopathy, this is most likely not a herpes encephalitis. Refer to neurology consult note for further details on their recommendations. Per Neurology recommendations and the pt's status -Considering the viral nature, the empiric antibiotics vancomycin and ceftriaxone should be D/C following negative blood cultures. - In case of herpes meningitis, the condition is often self-limiting lasting up to 5 days and acyclovir providing little benefit, acyclovir could probably be tapered off in the next 24 hrs. -The steroid should be tapered off as it is not indicated for a viral meningitis. -Continue to monitor for changes (2) Headache: Headache is consistent with the meningitis diagnosis Continue oxycodone 5mg PRN for pain. Headache chronicity pattern: acute headache Headache type: unspecified Intractability: not intractable Qualified Code(s): R51.9 - Headache, unspecified Admission and Anticipated Discharge Date Admission Date: April 13, 2020 Supervising Attestation This is a medical student note. 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 Pt came into the ER last night w/LYLES, fever, and a mild cough. The headache was 9/10 and was worse when bending the neck. LYLES was accompanied by photophobia. Today pt states his LYLES is still at a 9/10 despite recent pain medication. He is sensitive to light and sounds. Denies any weakness. Neck stiffness is still present. Pt states he was not able to get any sleep due to being unable to find a comfortable position and the pain. Review of Systems Constitutional: no fever, no chills, no sweats and no weakness Eyes: + photophobia Respiratory: no cough Cardiovascular: no chest pain Gastrointestinal: no abdominal pain Genitourinary: no dysuria Musculoskeletal: + stiffness Neurologic: + headache(s); no localized weakness and no numbness Physical Exam Physical Exam: Due to pain and sensitivity, pt did not want to repeat the physical exam for which he has done multiple times previously. As a medical student, I was not comfortable moving forward with the physical exam. Constitutional: + uncomfortable In Pain and sensitive to external stimuli. Responding with one word answers. Results & Data ([facility] [place]) Vital Signs (Past 12 Hours) Vital Signs Temp Pulse Pulse Resp BP BP BP 04/13/20 08:02 73 04/13/20 08:00 37.2 C 89 20 125/80 04/13/20 05:11 72 04/13/20 02:37 37.1 C 82 20 137/81 04/13/20 02:18 37.1 C 73 18 130/79 04/13/20 01:27 80 18 125/63 04/13/20 01:00 90 18 130/79 04/12/20 23:00 70 16 115/67 Pulse Ox Pulse Ox 04/13/20 08:02 04/13/20 08:00 97 04/13/20 05:11 04/13/20 02:37 97 04/13/20 02:18 97 97 04/13/20 01:27 98 04/13/20 01:00 96 04/12/20 23:00 96 Laboratory Results CBC showed elevated WBC at 18.36. otherwise normal CMP is WNL except for elevated glucose at 110 Coagulation were WNL LBP- Fluid was clear and colorless with elevated WBC at 74 and elevated protein at 156 LBP was positive for HSVII Blood cultures pending Lyme Negative. Laboratory Results WBC 18.36 K/uL (4.8-10.8) H 04/12/20 20:03 RBC 5.26 M/uL (4.7-6.1) 04/12/20 20:03 Hgb 15.6 g/dL (14.0-18.0) 04/12/20 20:03 Hct 47.5 % (42-52) 04/12/20 20:03 MCV 90.3 fL (80-100) 04/12/20 20:03 MCH 29.7 pg (25-34) 04/12/20 20:03 MCHC 32.8 g/dL (32-36) 04/12/20 20:03 RDW Std Deviation 45.5 fL (36.4-46.3) 04/12/20 20:03 RDW Coeff of Lili 13.7 % (11.5-14.5) 04/12/20 20:03 Plt Count 356 K/uL (130-400) 04/12/20 20:03 MPV 10.7 fL (7.4-10.4) H 04/12/20 20:03 Immature Gran % (Auto) 0.4 % 04/12/20 20:03 Neut % (Auto) 75.9 % 04/12/20 20:03 Lymph % (Auto) 16.9 % 04/12/20 20:03 Mcduffie % (Auto) 5.6 % 04/12/20 20:03 Eos % (Auto) 1.0 % 04/12/20 20:03 Baso % (Auto) 0.2 % 04/12/20 20:03 Neut # (Auto) 13.93 K/uL (1.4-6.5) H 04/12/20 20:03 Lymph # (Auto) 3.11 K/uL (1.2-3.4) 04/12/20 20:03 Mcduffie # (Auto) 1.02 K/uL (0.11-0.59) H 04/12/20 20:03 Eos # (Auto) 0.19 K/uL (0-0.5) 04/12/20 20:03 Baso # (Auto) 0.04 K/uL (0-0.2) 04/12/20 20:03 Immature Gran # (Auto) 0.07 K/uL (0.00-0.02) H 04/12/20 20:03 PT 10.6 Seconds (9.0-12.0) 04/12/20 20:03 INR 1.0 (0.9-1.1) 04/12/20 20:03 APTT 26.9 Seconds (21.0-31.0) 04/12/20 20:03 PTT Ratio 1.0 04/12/20 20:03 Sodium 138 mmol/L (136-145) 04/12/20 20:03 Potassium 4.0 mmol/L (3.5-5.1) 04/12/20 20:03 Chloride 108 mmol/L (98-107) H 04/12/20 20:03 Carbon Dioxide 26 mmol/L (21-32) 04/12/20 20:03 Anion Gap 4.0 (3-11) 04/12/20 20:03 BUN 11 mg/dl (7-18) 04/12/20 20:03 Creatinine 1.04 mg/dl (0.6-1.4) 04/12/20 20:03 Est Cr Clr Drug Dosing 111.2 ml/min 04/12/20 20:03 Est GFR ( Amer) 102.9 04/12/20 20:03 Est GFR (Non-Af Amer) 88.8 04/12/20 20:03 BUN/Creatinine Ratio 10.6 (10-20) 04/12/20 20:03 Glucose 110 mg/dl (70-99) H 04/12/20 20:03 Lactate 0.6 mmol/L (0.4-2.0) 04/12/20 20:45 Calcium 9.5 mg/dl (8.5-10.1) 04/12/20 20:03 Magnesium 1.8 mg/dl (1.8-2.4) 04/12/20 20:03 Total Bilirubin 0.5 mg/dl (0.2-1) 04/12/20 20:03 AST 17 U/L (15-37) 04/12/20 20:03 ALT 30 U/L (12-78) 04/12/20 20:03 Alkaline Phosphatase 74 U/L (45-117) 04/12/20 20:03 Troponin I < 0.015 ng/ml (0-0.045) 04/12/20 20:03 Total Protein 7.8 gm/dl (6.4-8.2) 04/12/20 20:03 Albumin 4.0 gm/dl (3.4-5.0) 04/12/20 20:03 Globulin 3.8 gm/dl (2.5-4.0) 04/12/20 20:03 Albumin/Globulin Ratio 1.1 (0.9-2) 04/12/20 20:03 Procalcitonin < 0.05 ng/ml (0-0.5) 04/12/20 20:03 Urine Color Dark Yellow 04/13/20 08:55 Urine Appearance Clear (Clear) 04/13/20 08:55 Urine pH 6.0 (4.5-7.5) 04/13/20 08:55 Ur Specific [place] 1.031 (1.000-1.030) H 04/13/20 08:55 Urine Protein Negative (Negative) 04/13/20 08:55 Urine Glucose (UA) Negative (Negative) 04/13/20 08:55 Urine Ketones Negative (Negative) 04/13/20 08:55 Urine Blood Negative (Negative) 04/13/20 08:55 Urine Nitrite Negative (Negative) 04/13/20 08:55 Urine Bilirubin Negative (Negative) 04/13/20 08:55 Urine Urobilinogen Negative (Negative) 04/13/20 08:55 Ur Leukocyte Esterase Negative (Negative) 04/13/20 08:55 CSF Appearance Clear 04/12/20 21:50 CSF Color Colorless 04/12/20 21:50 Xanthrochromic No xanthochromia 04/12/20 21:50 CSF WBC 74 /uL (0-5) H* 04/12/20 21:50 CSF RBC 0 /uL (0-) 04/12/20 21:50 CSF Cell Count Tube # 3 04/12/20 21:50 CSF Mononuclear WBCs 97.0 % 04/12/20 21:50 CSF Polynuclear WBCs 3.0 % 04/12/20 21:50 CSF Chemistry Tube # 1 04/12/20 21:50 CSF Glucose 50 mg/dl (40-70) 04/12/20 21:50 CSF Total Protein 156.1 mg/dl (15-45) H 04/12/20 21:50 CSF C.neoform/gat PCR Not Detected (NotDetected) 04/12/20 21:50 CSF CMV DNA (PCR) Not Detected (NotDetected) 04/12/20 21:50 CSF Enterovirus (PCR) Not Detected (NotDetected) 04/12/20 21:50 CSF E. coli K1 (PCR) Not Detected (NotDetected) 04/12/20 21:50 CSF H. influenzae (PCR) Not Detected (NotDetected) 04/12/20 21:50 CSF HSV I (PCR) Not Detected (NotDetected) 04/12/20 21:50 CSF HSV II (PCR) DETECTED (NotDetected) A* 04/12/20 21:50 CSF HHV 6 (PCR) Not Detected (NotDetected) 04/12/20 21:50 CSF L.monocytogenes PCR Not Detected (NotDetected) 04/12/20 21:50 CSF N. meningitidis PCR Not Detected (NotDetected) 04/12/20 21:50 CSF Parechovirus (PCR) Not Detected (NotDetected) 04/12/20 21:50 CSF S. agalactiae (PCR) Not Detected (NotDetected) 04/12/20 21:50 CSF S. pneumoniae (PCR) Not Detected (NotDetected) 04/12/20 21:50 CSF VZV DNA (PCR) Not Detected (NotDetected) 04/12/20 21:50 Anaplasma Smear See Comment 04/12/20 20:03 Lyme Disease IgG Ab Negative (Negative) 04/12/20 20:03 Lyme Disease IgM Ab Negative (Negative) 04/12/20 20:03 COVID-19 Eval Order Covid19 Done at [facility] 04/12/20 20:54 COVID-19 PCR NEGATIVE (Negative) 04/12/20 20:54 Influ A Molecular Assay Negative (Negative) 04/12/20 20:54 Influ B Molecular Assay Negative (Negative) 04/12/20 20:54 Diagnostic Findings CXR was negative for acute findings. Noted a right basilar opacity that was likely artifactual
[2020-04-14] MEDS ORDERED: VANCOMYCIN TROUGH ONE (11:30)
== END 2020-04-13 12:00 | disposition home or self-care (01) ==
LOC: ED 19:43 → INTOOBSV 04-13 00:41 → SUATTDRO 04-13 00:41 → 2E 04-13 00:41

== ENCOUNTER 2023-11-06 18:04 | Inpatient (IN) ==
--- NOTE | 2023-11-06 18:09 | ED Triage Note ---
Date of Service November 06, 2023 Provider in Triage Author: Mitch Mccann History of Present Illness This patient was briefly evaluated while in triage. An abbreviated physical exam was performed. This patient is a 43-year-old Male who presents to the ED for evaluation severe depression - feeling suicidal, per friend called her last night and "had a knife" drinking to excess - vodka, 4 [place] here with friend Physical Exam GENERAL: tearful, significantly intoxicated, slurring speech-unable to understand CARDIOVASCULAR: tachycardic RESPIRATORY: CTA Initial orders for labs and / or imaging were placed and patient was placed in the waiting area until a bed is available. Please see further documentation for the full ED course.
--- NOTE | 2023-11-06 18:26 | Emergency Department Note ---
Impression & Plan Alcohol intoxication ADMIT ED Provider Note HPI: History obtained from patient. The patient is a 43-year-old gentleman who presents the emergency department with a chief complaint of suicidal thoughts. Patient states he has been drinking alcohol. He states he has been thinking about cutting his wrist for the past week to kill himself. Patient states he told a friend about this last night and they brought him to the ER today to be assessed. On arrival here to the ER the patient appears intoxicated, he is a somewhat limited historian, he is drowsy appearing but otherwise hemodynamically stable. Patient states he was drinking alcohol earlier today. ROS: - Per HPI Differential Diagnosis: Alcohol intoxication, suicidal thoughts, anxiety/depression, amongst other potential pathologies. *Outpatient medications and allergy history reviewed. PE: General: Alert, intoxicated appearing, patient is conversational HEENT: Normocephalic, trachea midline Eyes: Extraocular eye movement is intact, no scleral erythema Pulmonary: Clear to auscultation bilaterally, no wheezing Cardio: Regular rate and rhythm GI: Abdomen is soft to palpation : No suprapubic tenderness MSK: No evidence of trauma or malformation of the extremities, no edema Skin: No evidence of rash Neuro: Alert, no focal deficits Psychiatric: Intoxicated but cooperative INDEPENDENT INTERPRETATIONS: monitor and storage bin tender: (As interpreted by myself): - An order was placed for continuous cardiac monitoring - Patient was noted to be in sinus rhythm with a rate of 113 Interventions provided in ED: -IV fluid bolus, nicotine patch Medical Decision Making: IV was established and lab work obtained, patient was placed on monitor and storage bin tender. Clearance lab work was obtained given the patient suicidal thoughts, lab work shows no leukocytosis, hemoglobin is normal, platelet count is normal, CMP shows mild hypokalemia 3.1 which was ordered for oral repletion, alcohol level is markedly elevated at 509. Urine drug screen is positive for marijuana. Patient was held in the ED for period of observation and fell asleep, on my reassessment at approximately 11 PM the patient is awake and alert. He is conversational at this time and he is able to have a lucid conversation with me. This is despite his markedly elevated alcohol level on presentation. Patient does admit to suicidal thoughts recently, states he was having thoughts of using a knife to kill himself. Patient would be agreeable for 201 however secondary to his alcohol intoxication he would require prolonged period of observation for clearance and I do feel that he is at risk for withdrawal. I therefore did discuss the patient's presentation with the on-call hospitalist, Dr. Marin, who was in agreement to admit the patient for inpatient care and psychiatric consultation. Patient was placed for admission in stable condition. Consultants/Discussions held with other healthcare providers: -Hospitalist, Dr. Marin Disposition discussion held by myself with: -Patient Diagnosis: 1. Alcohol intoxication, acute 2. Suicidal thoughts, acute 3. Anxiety/depression 4. Marijuana positive drug screen 5. Hypokalemia, acute Disposition: Admission Pedro Medina DO Emergency Medicine Past Med/Surg History Problem List (Updated 11/06/23 @ 23:38 by Pedro Medina DO) Alcohol intoxication (Acute) Viral meningitis Headache (Acute) Fever (Acute) Medical History Meningitis Viral meningitis Surgical History H/O hand surgery Family History Mother , age 59 of COPD COPD (chronic obstructive pulmonary disease) Social History Smoking Status: Current every day smoker Tobacco Type: Cigarettes packs per day: 1; Second Hand Exposure: Yes; Do You Dip or Chew Tobacco: No; Hx Alcohol Use: Yes Alcohol type: beer and hard liquor Alcohol Intake Frequency: 4 or More x per/Week Alcohol Intake Frequency Comment: approximately 10 drinks per weekend Hx Substance Use: Yes Last Used Substance: Hours (ago) Preferred Language: Burmese Communication Ability: Effective Director Of Investigations Required: No Beliefs That Will Affect Care: None Current Living Situation: Spouse current occupational status: employed current occupation: warehouse order selector Feels Safe at Home: Yes Assistive Devices: None Allergies Allergies Allergy/AdvReac Type Severity Reaction Status Date / Time No Known Allergies Allergy Verified 10/12/21 10:34 Home Meds Home Medications Medication Instructions Recorded Confirmed No Known Home Medications 11/06/23 11/06/23 Results & Data (ED) Vital Signs Vital Signs - 24 hr 11/06/23 18:07 11/06/23 18:42 11/06/23 18:50 Temperature 36.8 C Temperature Source Temporal Artery Scan Pulse Rate 123 H Pulse Rate [Left Finger] 107 H Pulse Rate from SpO2 Sensor Pulse Rhythm [Left Finger] Irregular Pulse Strength [Left Finger] Normal Respiratory Rate 18 18 Respiratory Effort / Characteristics Non-Labored Spontaneous Respiratory Depth Normal Respiratory Pattern Blood Pressure 143/89 H Blood Pressure [Right Arm] 121/96 Blood Pressure Mean 107 Blood Pressure Mean [Right Arm] 104 Blood Pressure Position Sitting Blood Pressure Position [Right Arm] Lying Pulse Oximetry 97 93 85 L Oxygen Delivery Method Room Air Room Air Room Air Sepsis Recent Fever Within 48 Hours No Sepsis New/Unexplained Change in Mental Status N/A Sepsis Action Taken by Nursing No Action Required Oxygen Flow Rate - Titration 2 Fraction of Inspired Oxygen - Titration 94 11/06/23 20:00 11/06/23 20:05 11/06/23 22:00 Temperature Temperature Source Pulse Rate 87 Pulse Rate [Left Finger] 98 H 90 Pulse Rate from SpO2 Sensor 87 Pulse Rhythm [Left Finger] Regular Pulse Strength [Left Finger] Normal Respiratory Rate 16 18 17 Respiratory Effort / Characteristics Non-Labored Spontaneous Non-Labored Spontaneous Respiratory Depth Normal Normal Respiratory Pattern Regular Regular Blood Pressure 178/100 H Blood Pressure [Right Arm] 178/100 H 113/70 Blood Pressure Mean 126 Blood Pressure Mean [Right Arm] 126 84 Blood Pressure Position Blood Pressure Position [Right Arm] Lying Pulse Oximetry 95 94 93 Oxygen Delivery Method Room Air Room Air Sepsis Recent Fever Within 48 Hours Sepsis New/Unexplained Change in Mental Status Sepsis Action Taken by Nursing Oxygen Flow Rate - Titration Fraction of Inspired Oxygen - Titration Laboratory Data 11/06/23 18:30 11/06/23 18:30 Lab Results 11/06/23 11/06/23 Range/Units 18:30 19:40 WBC 8.27 (4.8-10.8) K/ul RBC 5.60 (4.70-6.10) M/uL Hgb 17.8 (14.0-18.0) g/dl Hct 51.5 (42.0-52.0) % MCV 92.0 (80.0-100.0) fL MCH 31.8 (25.0-34.0) pg MCHC 34.6 (32.0-36.0) g/dL RDW Std Deviation 47.7 H (36.4-46.3) fL RDW Coeff of Lili 14.1 (11.5-14.5) % Plt Count 313 (130-400) K/uL MPV 9.3 L (9.4-12.4) fL Immature Gran % (Auto) 0.1 % Neut % (Auto) 53.9 % Lymph % (Auto) 34.2 % [place] % (Auto) 9.4 % Eos % (Auto) 1.1 % Baso % (Auto) 1.3 % Neut # (Auto) 4.45 (1.40-6.50) K/uL Lymph # (Auto) 2.83 (1.20-3.40) K/uL [place] # (Auto) 0.78 H (0.11-0.59) K/uL Eos # (Auto) 0.09 (0.00-0.50) K/uL Baso # (Auto) 0.11 (0.00-0.20) K/uL Immature Gran # (Auto) 0.01 (0.01-0.20) K/uL Sodium 141 (136-145) mmol/L Potassium 3.1 L (3.5-5.1) mmol/L Chloride 104 (98-107) mmol/L Carbon Dioxide 24 (21-32) mmol/L Anion Gap 13 H (3-11) BUN 5 L (6-23) mg/dl Creatinine 0.86 (0.6-1.4) mg/dl Est Cr Clr Drug Dosing 117.6 ml/min Est GFR ( Amer) 121.4 ml/min Est GFR (Non-Af Amer) 104.7 ml/min BUN/Creatinine Ratio 5.8 L (10-20) Glucose 133 H (70-99(Fasting)) mg/dl Calcium 8.9 (8.6-10.3) mg/dl Total Bilirubin 0.4 (0.2-1.0) mg/dl AST 51 H (13-39) U/L ALT 37 (7-52) U/L Alkaline Phosphatase 74 (34-104) U/L Total Protein 7.7 (6.0-8.3) gm/dl Albumin 4.3 (3.4-5.0) gm/dl Globulin 3.4 (2.5-4.0) gm/dl Albumin/Globulin Ratio 1.3 (0.9-2) TSH 0.924 (0.300-4.500) uIu/ml Urine Color Yellow Urine Appearance Clear (Clear) Urine pH 6.5 (4.5-7.5) Ur Specific [place] 1.006 (1.000-1.030) Urine Protein Negative (Negative) Urine Glucose (UA) Negative (Negative) Urine Ketones Negative (Negative) Urine Blood Negative (Negative) Urine Nitrite Negative (Negative) Urine Bilirubin Negative (Negative) Urine Urobilinogen Negative (Negative) Ur Leukocyte Esterase Negative (Negative) Salicylates < 3.0 L (3.0-30) mg/dl Urine Opiates Screen Neg (Neg) Ur Methadone, Qual Neg (Neg) Urine Fentanyl Screen Neg (Neg) Acetaminophen < 3 L (10-30) ug/ml Urine Barbiturates Neg (Neg) Ur Phencyclidine (PCP) Neg (Neg) U Amphetamin/Meth Scrn Neg (Neg) MDMA (Ecstasy) Screen Neg (Neg) U Benzodiazepines Scrn Neg (Neg) Ur Cocaine Metabolite Neg (Neg) U Marijuana (THC) Screen Pos H (Neg) Ethyl Alcohol mg/dL 509.4 H (<10.0) mg/dl Administered Medications Discontinued Medications Sodium Chloride (Nss) 1,000 mls @ 999 mls/hr IV .Q1H1M ONE Stop: 11/06/23 19:53 Last Infusion: 11/06/23 20:01 Dose: Infused Documented By: Admin: 11/06/23 18:54 Dose: 999 mls/hr Documented By: WILBUR Nicotine (Nicotine 21 Mg/24 Hr Tdsy) 1 patch TD ONCE ONE Stop: 11/06/23 21:35 Last Admin: 11/06/23 21:38 Dose: 1 patch Documented By: TAY Discharge Plan Visit Data Chief Complaint: Mental Health Evaluation Stated Complaint: DEPRESSION, ALCOHOL INTOXICATION ED Provider: Pedro Medina Discharge Problem: Alcohol intoxication Forms Stand Alone Forms: [facility], Suicide Prevention Resources Prescriptions Prescriptions: No Action No Known Home Medications Referrals Referrals: PCP,NO [Primary Care Provider] - Discharge Problem: Alcohol intoxication Qualifiers: Complication of substance-induced condition: with unspecified complication Q ualified Code(s): F10.929 - Alcohol use, unspecified with intoxication, unspecified
[2023-11-06 18:54] LABS: Basophils # (auto) 0.11 K/uL (0.00-0.20); Basophils % (auto) 1.3 %; Eosinophils # (auto) 0.09 K/uL (0.00-0.50); Eosinophils % (auto) 1.1 %; Hematocrit (blood only) 51.5 % (42.0-52.0); Hemoglobin 17.8 g/dl (14.0-18.0); Immature Granulocytes # (auto) 0.01 K/uL (0.01-0.20); Immature Granulocytes % (auto) 0.1 %; Lymphocytes # (auto) 2.83 K/uL (1.20-3.40); Lymphocytes % (auto) 34.2 %; Mean Corpuscular Hemoglobin 31.8 pg (25.0-34.0); Mean Corpuscular Hgb Conc 34.6 g/dL (32.0-36.0); Mean Platelet Volume 9.3 fL (9.4-12.4); Monocytes # (auto) 0.78 K/uL (0.11-0.59); Monocytes % (auto) 9.4 %; Neutrophils # (auto) 4.45 K/uL (1.40-6.50); Neutrophils % (auto) 53.9 %; Platelet Count 313 K/uL (130-400); RDW Coefficient of Variation 14.1 % (11.5-14.5); RDW Standard Deviation 47.7 fL (36.4-46.3); White Blood Count 8.27 K/ul (4.8-10.8)
[2023-11-06] MEDS: SODIUM CHLORIDE 0.9% 1,000 ML IV ONE (18:54)
[2023-11-06 19:10] LABS: Albumin Globulin Ratio 1.3 (0.9-2); Albumin Level 4.3 gm/dl (3.4-5.0); BUN Creatinine Ratio 5.8 (10-20); Bilirubin,Total 0.4 mg/dl (0.2-1.0); Calcium 8.9 mg/dl (8.6-10.3); Creatinine Clr Calc Pharmacy 117.6 ml/min; Est GFR (African American) 121.4 ml/min; Est GFR (Non-African American) 104.7 ml/min; Globulin 3.4 gm/dl (2.5-4.0); Potassium 3.1 mmol/L (3.5-5.1); Total Protein 7.7 gm/dl (6.0-8.3)
[2023-11-06 19:18] LABS: Acetaminophen < 3 ug/ml (10-30); Salicylate < 3.0 mg/dl (3.0-30)
[2023-11-06 19:25] LABS: Thyroid Stimulating Hormone 0.924 uIu/ml (0.300-4.500)
[2023-11-06 20:27] LABS: Appearance Urine Clear (Clear); Bilirubin Urine Negative (Negative); Blood Urine Negative (Negative); Color Urine Yellow; Glucose Urine UA Negative (Negative); Ketones Urine Negative (Negative); Leukocyte Esterase Urine Negative (Negative); Nitrite Urine Negative (Negative); Protein Urine Negative (Negative); Specific Gravity Urine 1.006 (1.000-1.030); Urobilinogen Urine Negative (Negative); pH Urine 6.5 (4.5-7.5)
[2023-11-06 21:17] LABS: Amphetamines+Metham, Urine Neg (Neg); Barbiturates, Urine Neg (Neg); Benzodiazepine, Urine Neg (Neg); Cocaine, Urine Neg (Neg); Fentanyl, Urine Neg (Neg); MDMA (Ecstacy), Urine Neg (Neg); Marijuana, Urine Pos (Neg); Methadone, Urine Neg (Neg); Opiate, Urine Neg (Neg); Phencyclidine, Urine Neg (Neg)
[2023-11-06] MEDS: NICOTINE 21 MG/24 HR TDSY TD ONE (21:38)
[2023-11-06] MEDS: POTASSIUM CHLORIDE PWD 20 MEQ PACK PO STA (23:38)
--- NOTE | 2023-11-06 23:43 | History & Physical Report ---
Date of Service November 06, 2023 Assessment & Plan (1) Suicidal ideation: Plan: 43yo male with one week of suicidal ideation, thoughts of slitting his wrists. Patient reports that he mainly just wants to feel better and does not want to . Verbally contracted for safety. -Admit to PCU -Maintain 1:1 observation -Suicide checks -Psychiatry consultation appreciated. Patient is open to starting medications if recommended. (2) Alcohol intoxication: Plan: Patient intoxicated - EtOH level of 509. Drinks approximately 24.5 drinks per day - last drink 11/06/23 at 17:00. Patient reports consistently drinking x 1 month. At high risk for withdrawals. -Admit to PCU -Repeat EtOH level in AM -Check Mg, PO4, Vitamin B12 and Folate level -Seizure precautions -AWSS with Ativan PRN -Librium taper to start tomorrow AM -Closely monitor for complicated withdrawals -Patient asking for something to help him sleep - will give Melatonin (3) Hypokalemia: Plan: K=3.1 -Check Mg and replete as needed -K 40mEq ordered -Repeat chemistry in AM History of Present Illness Chief Complaint: suicidal ideation, EtOH intoxication Primary Care Provider: NO PCP Emil Hawley is a 43yo male presenting with EtoH intoxication and suicidal ideation. Patient reports feeling very depressed. He relocated from [place] to the [facility] approximately 7 years ago at the behest of his . He and his have since (approximately 2.5 years ago). He feels very lonely and has no friends or family in this area. This evening he had suicidal thoughts. He reports thinking about cutting his wrists for the last week. He has no formal diagnosis of depression. He was seen by a Psychiatrist in 2014 after his mother and was placed on Prozac and Wellbutrin. He reports taking these medications for less than a year and has not been on any further antidepressant medications. He has had one prior suicidal gesture in the past - approximately 8 years ago while living in [place] he was thinking about jumping off of a bridge to end his life. He reports to me that he doesn't really want to , he just wants to feel better. Patient drinks EtOH regularly - daily over the last month with no breaks. He typically drinks 1 pint of vodka and 2-3 Four Lokos daily ((8 drinks/pint + (5.5 drinks/Four Dung x 3) = roughly 24.5 drinks/day). Last drink 11/06/23 at 17:00. He has had mild EtOH withdrawal in the past in the form of tremors but denies seizure or DTs. ER Course: Nicotine patch KCl 40mEq Allergies Allergy/AdvReac Type Severity Reaction Status Date / Time No Known Allergies Allergy Verified 10/12/21 10:34 Home Medications Medication Instructions Recorded Confirmed Type No Known Home Medications 11/06/23 11/06/23 History Past Med/Surg History Problem List (Updated 11/07/23 @ 00:02 by Arlene Marin DO) Hypokalemia Suicidal ideation Alcohol intoxication (Acute) Viral meningitis Headache (Acute) Fever (Acute) Medical History Meningitis Viral meningitis Surgical History H/O hand surgery Family History Mother , age 59 of COPD COPD (chronic obstructive pulmonary disease) Social History Smoking Status: Current every day smoker Tobacco Type: Cigarettes packs per day: 1; Second Hand Exposure: Yes; Do You Dip or Chew Tobacco: No; Hx Alcohol Use: Yes Alcohol type: beer and hard liquor Alcohol Intake Frequency : 4 or More x per/Week Alcohol Intake Frequency Comment: approximately 10 drinks per weekend Hx Substance Use: Yes Last Used Substance: Hours (ago) Preferred Language: Hungarian Communication Ability: Effective General Manager Food Required: No Beliefs That Will Affect Care: None Current Living Situation: Spouse current occupational status: employed current occupation: lead warehouse associate Feels Safe at Home: Yes Assistive Devices: None Review of Systems Review of Systems: All systems reviewed & are unremarkable except as noted in HPI & below Physical Exam Physical Exam: General: patient resting comfortably, NAD, non-toxic in appearance, AA&O x 4 Skin: warm, dry, intact, no rashes or lesions HEENT: NC/AT, PERRL, EOMI, anicteric sclera, conjunctiva without injection, external ear normal to inspection and nontender, nares patent, moist mucus membranes, dentition intact, no oropharyngeal lesions, neck supple, trachea midline, no LAD, no thyromegaly, no JVD Heart: +S1/S2, regular, no m/r/g Lungs: equal air entry bilaterally, no rales/rhonchi/wheezes Abd: +BS, soft, NT/ND, no masses/organomegaly/ascites Ext: warm, 2+ pulses in UE/LE bilaterally, no clubbing/cyanosis or edema Neuro: nonfocal, patient AA&O x 4, speech intact, no facial droop, moving all extremities on command with equal strength 5/5 Results & Data Results & Data Vital Signs (Past 12 Hours) Vital Signs Temp Pulse Pulse Resp BP BP Pulse Ox 11/06/23 22:00 90 17 113/70 93 11/06/23 20:05 98 H 18 178/100 H 94 11/06/23 20:00 87 16 178/100 H 95 11/06/23 18:50 85 L 11/06/23 18:42 107 H 18 121/96 93 11/06/23 18:07 36.8 C 123 H 18 143/89 H 97 O2 Del Method 11/06/23 22:00 Room Air 11/06/23 20:05 Room Air 11/06/23 20:00 11/06/23 18:50 Room Air 11/06/23 18:42 Room Air 11/06/23 18:07 Room Air Laboratory Results Laboratory Results WBC 8.27 K/ul (4.8-10.8) 11/06/23 18:30 RBC 5.60 M/uL (4.70-6.10) 11/06/23 18:30 Hgb 17.8 g/dl (14.0-18.0) 11/06/23 18:30 Hct 51.5 % (42.0-52.0) 11/06/23 18:30 MCV 92.0 fL (80.0-100.0) 11/06/23 18:30 MCH 31.8 pg (25.0-34.0) 11/06/23 18:30 MCHC 34.6 g/dL (32.0-36.0) 11/06/23 18:30 RDW Std Deviation 47.7 fL (36.4-46.3) H 11/06/23 18:30 RDW Coeff of Lili 14.1 % (11.5-14.5) 11/06/23 18:30 Plt Count 313 K/uL (130-400) 11/06/23 18:30 MPV 9.3 fL (9.4-12.4) L 11/06/23 18:30 Immature Gran % (Auto) 0.1 % 11/06/23 18:30 Neut % (Auto) 53.9 % 11/06/23 18:30 Lymph % (Auto) 34.2 % 11/06/23 18:30 [place] % (Auto) 9.4 % 11/06/23 18:30 Eos % (Auto) 1.1 % 11/06/23 18:30 Baso % (Auto) 1.3 % 11/06/23 18:30 Neut # (Auto) 4.45 K/uL (1.40-6.50) 11/06/23 18:30 Lymph # (Auto) 2.83 K/uL (1.20-3.40) 11/06/23 18:30 [place] # (Auto) 0.78 K/uL (0.11-0.59) H 11/06/23 18:30 Eos # (Auto) 0.09 K/uL (0.00-0.50) 11/06/23 18:30 Baso # (Auto) 0.11 K/uL (0.00-0.20) 11/06/23 18:30 Immature Gran # (Auto) 0.01 K/uL (0.01-0.20) 11/06/23 18:30 Sodium 141 mmol/L (136-145) 11/06/23 18:30 Potassium 3.1 mmol/L (3.5-5.1) L 11/06/23 18:30 Chloride 104 mmol/L (98-107) 11/06/23 18:30 Carbon Dioxide 24 mmol/L (21-32) 11/06/23 18:30 Anion Gap 13 (3-11) H 11/06/23 18:30 BUN 5 mg/dl (6-23) L 11/06/23 18:30 Creatinine 0.86 mg/dl (0.6-1.4) 11/06/23 18:30 Est Cr Clr Drug Dosing 117.6 ml/min 11/06/23 18:30 Est GFR ( Amer) 121.4 ml/min 11/06/23 18:30 Est GFR (Non-Af Amer) 104.7 ml/min 11/06/23 18:30 BUN/Creatinine Ratio 5.8 (10-20) L 11/06/23 18:30 Glucose 133 mg/dl (70-99(Fasting)) H 11/06/23 18:30 Calcium 8.9 mg/dl (8.6-10.3) 11/06/23 18:30 Total Bilirubin 0.4 mg/dl (0.2-1.0) 11/06/23 18:30 AST 51 U/L (13-39) H 11/06/23 18:30 ALT 37 U/L (7-52) 11/06/23 18:30 Alkaline Phosphatase 74 U/L (34-104) 11/06/23 18:30 Total Protein 7.7 gm/dl (6.0-8.3) 11/06/23 18:30 Albumin 4.3 gm/dl (3.4-5.0) 11/06/23 18:30 Globulin 3.4 gm/dl (2.5-4.0) 11/06/23 18:30 Albumin/Globulin Ratio 1.3 (0.9-2) 11/06/23 18:30 TSH 0.924 uIu/ml (0.300-4.500) 11/06/23 18:30 Urine Color Yellow 11/06/23 19:40 Urine Appearance Clear (Clear) 11/06/23 19:40 Urine pH 6.5 (4.5-7.5) 11/06/23 19:40 Ur Specific Issue 1.006 (1.000-1.030) 11/06/23 19:40 Urine Protein Negative (Negative) 11/06/23 19:40 Urine Glucose (UA) Negative (Negative) 11/06/23 19:40 Urine Ketones Negative (Negative) 11/06/23 19:40 Urine Blood Negative (Negative) 11/06/23 19:40 Urine Nitrite Negative (Negative) 11/06/23 19:40 Urine Bilirubin Negative (Negative) 11/06/23 19:40 Urine Urobilinogen Negative (Negative) 11/06/23 19:40 Ur Leukocyte Esterase Negative (Negative) 11/06/23 19:40 Salicylates < 3.0 mg/dl (3.0-30) L 11/06/23 18:30 Urine Opiates Screen Neg (Neg) 11/06/23 19:40 Ur Methadone, Qual Neg (Neg) 11/06/23 19:40 Urine Fentanyl Screen Neg (Neg) 11/06/23 19:40 Acetaminophen < 3 ug/ml (10-30) L 11/06/23 18:30 Urine Barbiturates Neg (Neg) 11/06/23 19:40 Ur Phencyclidine (PCP) Neg (Neg) 11/06/23 19:40 U Amphetamin/Meth Scrn Neg (Neg) 11/06/23 19:40 MDMA (Ecstasy) Screen Neg (Neg) 11/06/23 19:40 U Benzodiazepines Scrn Neg (Neg) 11/06/23 19:40 Ur Cocaine Metabolite Neg (Neg) 11/06/23 19:40 U Marijuana (THC) Screen Pos (Neg) H 11/06/23 19:40 Ethyl Alcohol mg/dL 509.4 mg/dl (<10.0) H 11/06/23 18:30 ECG Additional Comments: EKG with ST at 22bpm, right axis deviation, OU=269, QRS=98, APr=787, evidence of prior anterior infarct present PG Care Time/CCT Total # of Minutes Spent Total Time Spent with Patient: Total time spent is greater than 50% in coordination of care (as documented) at patient's floor/unit and/or counseling patient: Coding Level of Care Code 23134 INT INP/OBS CARE 3/75MIN Diagnoses Suicidal ideation R45.851 Alcohol intoxication F10.929 Complication of substance-induced condition: with unspecified complication Hypokalemia E87.6 (2) Alcohol intoxication Complication of substance-induced condition: with unspecified complication Qualified Code(s): F10.929 - Alcohol use, unspecified with intoxication, unspecified
[2023-11-07] MEDS ORDERED: LORazepam 3 MG in SYRINGE 1.5 ML IV PRN (01:19)
[2023-11-07] MEDS ORDERED: LORazepam 2 MG in SYRINGE 1 ML IV PRN (01:19)
[2023-11-07] MEDS ORDERED: LORazepam 1 MG in SYRINGE 0.5 ML IV PRN (01:19)
[2023-11-07] MEDS ORDERED: Ativan IV Alcohol Withdrawal--Active Protocol IV PRN ×2 (01:19→07:53)
[2023-11-07] MEDS ORDERED: ONDANSETRON INJ 2 MG/ML 2 ML VIAL IV PRN (01:19)
[2023-11-07] MEDS: MULTI-VITAMIN INFUSION 10 ML, THIAMINE HCL 100 MG, FOLIC ACID 1 MG in SODIUM CHLORIDE 0... IV ONE (01:53)
[2023-11-07] MEDS: MELATONIN 3 MG TAB PO ONE (01:54)
[2023-11-07] MEDS: chlordiazePOXIDE HCl 25 MG CAP PO SCH ×3 (01:54→14:46)
[2023-11-07 02:17] LABS: Folate (Folic Acid),Ser orPlas 2.18 ng/ml (>5.38)
[2023-11-07 06:11] LABS: Hematocrit (blood only) 45.6 % (42.0-52.0); Hemoglobin 15.5 g/dl (14.0-18.0); Mean Corpuscular Hemoglobin 31.4 pg (25.0-34.0); Mean Corpuscular Volume 92.5 fL (80.0-100.0); Mean Platelet Volume 9.4 fL (9.4-12.4); Platelet Count 240 K/uL (130-400); RDW Standard Deviation 47.3 fL (36.4-46.3); Red Blood Count 4.93 M/uL (4.70-6.10)
[2023-11-07 06:29] LABS: Albumin Level 3.5 gm/dl (3.4-5.0); BUN Creatinine Ratio 8.6 (10-20); Bilirubin Direct 0.1 mg/dl (0-0.2); Bilirubin,Total 0.5 mg/dl (0.2-1.0); Calcium 7.9 mg/dl (8.6-10.3); Creatinine Clr Calc Pharmacy 181.4 ml/min; Est GFR (African American) 142.7 ml/min; Est GFR (Non-African American) 123.1 ml/min; Potassium 3.8 mmol/L (3.5-5.1); Total Protein 6.3 gm/dl (6.0-8.3)
--- NOTE | 2023-11-07 07:16 | Hospitalist Progress Note ---
Date of Service November 07, 2023 Assessment & Plan (1) Suicidal ideation: (2) Alcohol intoxication: (3) Hypokalemia: Plan Alcohol intoxication/withdrawal -Last drink 11/06/23 at 17:00. Drinks approximately 24.5 drinks per day Patient reports consistently drinking for the past 1 month. At high risk for withdrawals. -Labs Show: -EtOH level of 509 on arrival; most recent 108 -Total bilirubin, direct bilirubin, alk phos, total protein, albumin, globulin WNL -AST 54: ALT 36 -Mg, PO4, Vitamin B12 WNL -Folate 2.18 -Continue Thiamine 500 mg IV QAM -Continue folic acid 1 mg PO QAM -AWSS with Ativan PRN 0900: CIWA: 7, PWSS: 6 1100: CIWA 11 -Increased Chlordiazepoxide 100 mg PO TID ALICIA -Continue to monitor hourly, will reevaluate need for phenobarbital at 1400 -Closely monitor for complicated withdrawals -Seizure precautions Alcohol Use Disorder -See alcohol withdrawal for plan Suicidal ideation -One week of suicidal ideation, thoughts of slitting his wrists. -Patient reports that he mainly just wants to feel better and does not want to . He "wants to stick around for his son" -Maintain 1:1 observation -Suicide checks -Consider psych consult if symptoms change Hypokalemia -On arrival K=3.1. K 40mEq ordered. Currently 3.8 -Mg 2.0 Hypertension -Most recently 164/100 -In the context of acute alcohol withdrawal -Continue to monitor Tobacco Use Disorder -Continue nicotine patch History of Substance Use/BRYAN -Patient denies current substance use other than alcohol and marijuana -Tox screen positive for marijuana and ethyl alcohol FEN:Regular Code status: full code DVT ppx: SCDs Held home meds: N/A Consults: N/A Case management: Consulted Dispo: telemetry, PCU Admission and Anticipated Discharge Date Admission Date: November 06, 2023 Supervising Physician Co-Signing Physician Notes I personally examined the patient and verified all wills points of history and exam, discussed case, and agree with decision making with Dr Wasserman and Tiny Linares MS4 Feeling a bit better and less severe withdrawal symptoms whenever I see him. Vitals noted, in general he is resting appearing more comfortable. Breathing unlabored no accessory muscle use good effort. No tremors at rest laying still. no focal neurodeficits. Alcohol abuse and withdrawalthiamine, folate, aggressive benzodiazepine regimen given that he was starting to show rather significant withdrawalserial exams and titrate regimen as needed. Depressionwill need to revisit suicidality when he is sober, but does not sound to have been dangerous plan. Appreciate psychiatry backup. Definitely will need to build a comprehensive plan to help with his depression. DVT prophylaxisambulation/SCDs for now. If his withdrawal worsens and/or he is more bedboundobviously then add pharmacologic prophylaxis. Subjective Emil Hawley is a 43 year old male with a PMHx of AUD, polysubstance use, and suicidal ideation who presented presented on 11/06/23 for concerns of SI. ETOH was 509 on arrival. Suicidal Ideation He endorsed SI on 11/06/23 and reported thinking about cutting his wrists for the last week. He states that he doesn't really want to , he wants to feel better. The patient moved to [place] from [place] 7 years ago with his , and they then 2.5 years ago. He feels lonely and depressed, as he has no friends or family in this area other than his ex- and 11-year old son. He has no formal diagnosis of depression. He was previously seen by a psychiatrist in 2015 following the of his mother. He was placed on Prozac and Wellbutrin and took them for less than a year. He reports no further antidepressant medications. He had 1 prior instance of SI in the past. 8 years ago he had thoughts of jumping off a bridge to end his life. Alcohol Intoxication/Withdrawal/AUD Last Drink: Last drink 11/06/23 at 17:00. Although he has been drinking for most of his adolescent and adult life, his alcohol use increased 2 years ago following his separation with his . He typically drinks 1 pint of vodka and 2-3 Four Lokos daily ((8 drinks/pint + (5.5 drinks/Four Dung x 3) = roughly 24.5 drinks/day)). Sometimes instead of the four lokos, we will drink 2 pints of vodka instead. Patient reports "blacking out (no memory of events while intoxicated)" or "sky out (partial memories of events while intoxicated)" most nights he drinks. He states that he browned out last night and doesn't remember much of the events leading to his arrival to the ED. Roughly 6 months ago, he drank "a couple of beers" before picking up his son and his friends. He was pulled over and was charged with a DUI. He states that this event was his "rock bottom" and has a trial coming up in November. After this event, he stopped drinking for 5-6 days and developed tremors. He started drinking again to control the withdrawal symptoms. He also lost his job and is at risk of losing his car, which has added to his stress. He states that he often does not have enough money to eat. He recently went 1 week where all he ate was "a burrito and egg McMuffin", in addition to alcohol. Withdrawal history: -He has had mild alcohol withdrawal in the past (tremors) -Denies seizures -Denies DTs Associated Symptoms: -Endorses: Mild Diaphoresis Right sided headache: feels like "he banged his head," describes area as tender. Doesn't remember falling/hitting his head Hand tremors Lower intermittent right sided abdominal pain radiating into the groin, describes as "kidney pain." Does not currently have the pain -Denies anxiety, auditory/visual hallucinations, confusion, CP, SOB, abd pain, n/v/d/c Substance Use/BRYAN Other current substances: Marijuana, uses for sleep. Obtains from a friend who buys from a dispensary in [place]. Substance use history: -Describes use as recreational. "Everything but heroin and PCP." Has used cocaine, acid, mushrooms. -Used pain pills in the past. "I got hooked on those." Went to rehab for use in [place] for 30 days, retuned to use room after rehab. He has not used any pills since moving to [place]. Review of Systems Review of Systems: See HPI, otherwise negative Physical Exam Physical Exam: Constitutional: well-appearing, no acute distress, lying in hospital bed in paper scrubs comfortably. One-on-one present in room. HEENT: NCAT, no conjunctival injection. Intermittently tearful. No tenderness to palpation of the scalp. CV: regular rhythm, no murmur appreciated, extremities well-perfused, no LE edema Resp: CTABL, no wheezes/rales/rhonchi appreciated,no increased work of breathing GI: soft, nondistended, nontender, BS normactive. MSK: no gross deformities appreciated. Back: No CVA tenderness. No tenderness to palpation of the cervical, thoracic, and lumbar spine Skin: Warm, back mildly diaphoretic, no rash appreciated Neuro: alert, oriented, no focal neurologic deficit appreciated. Mild tremor in hands bilaterally. Results & Data Results & Data Vital Signs (Past 12 Hours) Vital Signs Temp Pulse Pulse Resp BP BP Pulse Ox 11/07/23 06:55 97.5 F L 85 18 164/100 H 96 11/07/23 03:03 97.9 F 87 15 151/102 H 95 11/07/23 01:23 97.9 F 86 18 175/110 H 96 11/07/23 01:20 90 11/06/23 22:00 90 17 113/70 93 11/06/23 20:05 98 H 18 178/100 H 94 11/06/23 20:00 87 16 178/100 H 95 O2 Del Method 11/07/23 06:55 Room Air 11/07/23 03:03 Room Air 11/07/23 01:23 Room Air 11/07/23 01:20 11/06/23 22:00 Room Air 11/06/23 20:05 Room Air 11/06/23 20:00 Laboratory Results Laboratory Results - last 24 hr 11/06/23 11/06/23 11/07/23 18:30 19:40 05:50 WBC 8.27 7.80 RBC 5.60 4.93 Hgb 17.8 15.5 Hct 51.5 45.6 MCV 92.0 92.5 MCH 31.8 31.4 MCHC 34.6 34.0 RDW Std Deviation 47.7 H 47.3 H RDW Coeff of Lili 14.1 14.0 Plt Count 313 240 MPV 9.3 L 9.4 Immature Gran % (Auto) 0.1 Neut % (Auto) 53.9 Lymph % (Auto) 34.2 [place] % (Auto) 9.4 Eos % (Auto) 1.1 Baso % (Auto) 1.3 Neut # (Auto) 4.45 Lymph # (Auto) 2.83 [place] # (Auto) 0.78 H Eos # (Auto) 0.09 Baso # (Auto) 0.11 Immature Gran # (Auto) 0.01 Sodium 141 141 Potassium 3.1 L 3.8 D Chloride 104 109 H Carbon Dioxide 24 24 Anion Gap 13 H 8 BUN 5 L 5 L Creatinine 0.86 0.58 L Est Cr Clr Drug Dosing 117.6 181.4 Est GFR ( Amer) 121.4 142.7 Est GFR (Non-Af Amer) 104.7 123.1 BUN/Creatinine Ratio 5.8 L 8.6 L Glucose 133 H 84 Calcium 8.9 7.9 L Phosphorus 3.0 Magnesium 2.0 Total Bilirubin 0.4 0.5 Direct Bilirubin 0.1 AST 51 H 54 H ALT 37 36 Alkaline Phosphatase 74 56 Total Protein 7.7 6.3 Albumin 4.3 3.5 Globulin 3.4 Albumin/Globulin Ratio 1.3 Vitamin B12 832 Folate 2.18 L TSH 0.924 Urine Color Yellow Urine Appearance Clear Urine pH 6.5 Ur Specific [place] 1.006 Urine Protein Negative Urine Glucose (UA) Negative Urine Ketones Negative Urine Blood Negative Urine Nitrite Negative Urine Bilirubin Negative Urine Urobilinogen Negative Ur Leukocyte Esterase Negative Salicylates < 3.0 L Urine Opiates Screen Neg Ur Methadone, Qual Neg Urine Fentanyl Screen Neg Acetaminophen < 3 L Urine Barbiturates Neg Ur Phencyclidine (PCP) Neg U Amphetamin/Meth Scrn Neg MDMA (Ecstasy) Screen Neg U Benzodiazepines Scrn Neg Ur Cocaine Metabolite Neg U Marijuana (THC) Screen Pos H U Marijuana THC Carboxy Pending Drug Screen Comment Pending Ethyl Alcohol mg/dL 509.4 H 138.7 H Medications Administered Current Inpatient Medications Chlordiazepoxide HCl (Chlordiazepoxide Hcl 25 Mg Cap) 100 mg PO TID [facility] Stop: 12/07/23 13:59 Folic Acid (Folic Acid 1 Mg Tab) 1 mg PO QAM [facility]1983 Stop: 12/07/23 08:59 Last Admin: 11/07/23 07:58 Dose: 1 mg Thiamine HCl 500 mg/ Sodium (Chloride) 55 mls @ 210 mls/hr IV QAM [facility]1983 Stop: 12/07/23 08:59 Last Infusion: 11/07/23 08:30 Dose: Infused Lorazepam 1 mg/ Syringe 1 mls @ 2 mls/min IV UD PRN; Protocol PRN Reason: EtOH Withdrawal AWSS Score 6,7 Stop: 12/07/23 07:52 Lorazepam 2 mg/ Syringe 2 mls @ 2 mls/min IV UD PRN; Protocol PRN Reason: EtOH Withdrawal AWSS Score 8,9 Stop: 12/07/23 07:52 Miscellaneous (Remove Nicoderm Patch) 1 each N/A DAILY@0859 [facility] Stop: 12/07/23 08:58 Last Admin: 11/07/23 07:57 Dose: 1 each Nicotine (Nicotine 21 Mg/24 Hr Tdsy) 1 patch TD QAM [facility] Stop: 12/07/23 08:59 Last Admin: 11/07/23 07:58 Dose: 1 patch Ondansetron HCl (Ondansetron Inj 2 Mg/Ml 2 Ml Vial) 4 mg IV Q6H PRN PRN Reason: Nausea And Vomiting Stop: 12/07/23 01:18 (2) Alcohol intoxication Complication of substance-induced condition: with unspecified complication Qualified Code(s): F10.929 - Alcohol use, unspecified with intoxication, unspecified
[2023-11-07] MEDS ORDERED: PHENobarbital PO Alcohol Withdrawal PO STA (07:24)
[2023-11-07] MEDS: PHENobarbital sodium 65 MG/ML VIAL IV STA (07:32)
[2023-11-07] MEDS ORDERED: PHENobarbital sodium 65 MG/ML VIAL IV PRN ×2 (07:39→09:24)
[2023-11-07] MEDS ORDERED: chlordiazePOXIDE ALCOHOL WITHDRAWL 50MG PO STA (07:53)
[2023-11-07] MEDS: FOLIC ACID 1 MG TAB PO SCH (07:58)
[2023-11-07] MEDS: NICOTINE 21 MG/24 HR TDSY TD SCH (07:58)
[2023-11-07] MEDS: THIAMINE HCL 500 MG in SODIUM CHLORIDE 0.9% 50 ML IV SCH (08:14)
[2023-11-07] MEDS ORDERED: THIAMINE HCL 100 MG TAB PO SCH (09:00)
[2023-11-07] MEDS ORDERED: chlordiazePOXIDE ALCOHOL WITHDRAWL 50MG PO SCH (09:00)
[2023-11-07] MEDS: LORazepam 3 MG in SYRINGE 1.5 ML IV PRN (11:18)
[2023-11-07] MEDS: chlordiazePOXIDE HCl 25 MG CAP PO ONE (11:27)
--- NOTE | 2023-11-07 12:20 | Communication Note ---
Date of Service: November 07, 2023 Psychiatry consulted for suicidal ideation. At the time of consult (11/06/23) and endorsement of suicidal ideation, pt was intoxicated BAL 509.4. This AM 11/07/23 05:50 pt presented BAL of 138.7. Evaluation is not appropriate while pt is intoxicated. Once sober, if patient continues to endorse suicidal ideation please contact psychiatric consult liaison for evaluation. Please state specific needs and concerns to better assist care. Thank you.
--- NOTE | 2023-11-07 17:38 | Billing Data ---
Date of Service November 07, 2023 Coding Level of Care Code 94187 SUB INP/OBS CARE MIN
--- NOTE | 2023-11-07 18:35 | Electrocardiogram Report ---
Test Reason : Blood Pressure : / mmHG Vent. Rate : 122 BPM Atrial Rate : 122 BPM P-R Int : 172 ms QRS Dur : 098 ms QT Int : 320 ms P-R-T Axes : 067 177 046 degrees QTc Int : 456 ms Sinus tachycardia Right axis deviation Anteroseptal infarct , age undetermined Abnormal ECG When compared with ECG of 12-APR-2020 20:03, QRS axis Shifted right Anteroseptal infarct is now Present Confirmed by Dk Taylor ([id number]) on 11/07/2023 6:34:49 PM Referred By: REFERRED SELF Confirmed By:Dk Taylor
[2023-11-07] MEDS ORDERED: PHENobarbitaL 30 MG TAB PO SCH (19:30)
[2023-11-07] MEDS: LORazepam 1 MG in SYRINGE 0.5 ML IV PRN (20:55)
[2023-11-08] MEDS: LORazepam 1 MG in SYRINGE 0.5 ML IV STA (00:32)
[2023-11-08] MEDS ORDERED: PHENobarbitaL 30 MG TAB PO SCH (01:30)
[2023-11-08] MEDS ORDERED: chlordiazePOXIDE HCl 25 MG CAP PO SCH ×2 (06:00→10:00)
--- NOTE | 2023-11-08 06:47 | Hospitalist Progress Note ---
Date of Service November 08, 2023 Assessment & Plan (1) Alcohol withdrawal syndrome: (2) Suicidal ideation: (3) Tobacco use disorder: (4) Alcohol use disorder: (5) Hypertension: Plan Emil Hawley is a 43 year old male with a PMHx of AUD, polysubstance use, and suicidal ideation who presented presented on 11/06/23 for concerns of SI. ETOH was 509 on arrival. #Alcohol intoxication/withdrawal -Last drink 11/06/23 at 17:00. Drinks approximately 24.5 drinks per day Patient reports consistently drinking for the past 1 month. -Continue Thiamine 500 mg IV QAM, Continue folic acid 1 mg PO QAM - AWSS with Ativan PRN; required 2 mg ativan overnight - Continue Chlordiazepoxide 100 mg PO TID ALICIA - Seizure precautions #Alcohol Use Disorder -See abovel for plan #Suicidal ideation -One week of suicidal ideation, thoughts of slitting his wrists. -Patient reports that he mainly just wants to feel better and does not want to . He "wants to stick around for his son" -Maintain 1:1 observation -Suicide checks -Consider psych consult if this changes when pt is sober #Hypertension -overnight 150-180s/90-110s -In the context of acute alcohol withdrawal -Continue to monitor #Tobacco Use Disorder -Continue nicotine patch #History of Substance Use/BRYAN -Patient denies current substance use other than alcohol and marijuana -Tox screen positive for marijuana and ethyl alcohol Admission and Anticipated Discharge Date Admission Date: November 06, 2023 Supervising Physician Co-Signing Physician Notes I personally examined the patient and verified all wills points of history and exam, discussed case, and agree with decision making with Dr Bender Patient sleeping comfortably. Discussed with nursing. Had a little elevation in his alcohol withdrawal scale earlier that responded nicely to 1 mg of Ativan. No other new issues have arisen. Allowed patient to sleep. Vitals noted, in general he is sleeping appears comfortable and in no distress. Heart rate controlled blood pressure elevated, breathing unlabored no tremulousness or sweats noted while he is at rest. Alcohol abuse and withdrawalthiamine, folate, Continue aggressive geena zodiazepine regimen given that he was starting to show rather significant withdrawalserial exams and titrate regimen as needed. fortunately stable today in this regard Depression continue to follow mental status and reassess suicidality. Appreciate psychiatry backup. Definitely will need to build a comprehensive plan to help with his depression. DVT prophylaxisambulation/SCDs for now. If his withdrawal worsens and/or he is more bedboundobviously then add pharmacologic prophylaxis. Subjective Emil Hawley is a 43 year old male with a PMHx of AUD, polysubstance use, and suicidal ideation who presented presented on 11/06/23 for concerns of SI. ETOH was 509 on arrival. Today, pt states he is feeling overall okay. No visual or auditory hallucinations at this time. No chest pain or SOB. No questions or complaints at this time. He states he went through withdrawal about 1 mo ago for 5 days on his own. Last drink was the evening of 11/05. Review of Systems Review of Systems: Per HPI. Physical Exam Physical Exam: General:Fatigued appearing but alert and oriented at the time of exam HEENT: Normocephalic, moist oral mucosa, Cardio: Regular rate and rhythm, no murmur, Resp:Lungs clear to auscultation b/l, no wheezes or rhonchi, GI: Soft and nontender, nondistended, bowel sounds active Skin: Warm, pink, dry, Results & Data Results & Data Vital Signs (Past 12 Hours) Vital Signs Temp Pulse Pulse Resp BP BP Pulse Ox 11/08/23 04:03 36.8 C 69 18 149/93 H 93 11/08/23 00:00 36.9 C 79 18 188/110 H 97 11/07/23 23:58 71 11/07/23 19:06 36.7 C 89 20 174/106 H 97 O2 Del Method 11/08/23 04:03 Room Air 11/08/23 00:00 Room Air 11/07/23 23:58 11/07/23 19:06 Room Air Resident Activity Tracking Resident Involvement: Resident Care Provided Care Provided: Adult Hospital Medicine
[2023-11-08 10:34] LABS: Albumin Globulin Ratio 1.2 (0.9-2); Albumin Level 4.1 gm/dl (3.4-5.0); BUN Creatinine Ratio 12.2 (10-20); Bilirubin,Total 1.4 mg/dl (0.2-1.0); Calcium 9.8 mg/dl (8.6-10.3); Creatinine Clr Calc Pharmacy 142.2 ml/min; Est GFR (African American) 129.1 ml/min; Est GFR (Non-African American) 111.4 ml/min; Globulin 3.4 gm/dl (2.5-4.0); Magnesium 1.8 mg/dl (1.7-2.4); Potassium 3.5 mmol/L (3.5-5.1); Total Protein 7.5 gm/dl (6.0-8.3)
[2023-11-08] MEDS: CETIRIZINE HCL 10 MG TABLET PO ONE (11:07)
--- NOTE | 2023-11-08 11:46 | Billing Data ---
Date of Service November 08, 2023 Coding Level of Care Code 66830 SUB INP/OBS CARE
--- NOTE | 2023-11-08 15:25 | Psychiatric Consultation ---
Date of Consultation November 08, 2023 Impression / Recommendations Impression This is a 43 yo with a history of depression use admitted medically. Diagnostically consistent with alcohol use disorder as well as unspecified depression and anxiety likely a combination of substance-induced as well as MDD and adjustment disorder with anxiety in context of financial stressors. Acute risk of self-harm is low given denial of SI, no longer with intoxication, no prior attempts, no access to guns, strong reasons for living, significant deterrent of his son, future-oriented. Chronic risk of self-harm and harm to others is slightly increased due to substance use with substance use treatment being the most significant modifiable risk factor to reduce acute and chronic risk. He is not interested in residential treatment at this time but is agreeable to outpatient services to help with substance use and medication assisted treatment starting with PCP referral and CM referral until his insurance becomes active and then he is willing to consider additional outpatient dual diagnosis services. Overall, I spent a total of [25] [35] [50] minutes with this case including review of chart records, direct evaluation of the patient at bedside, counseling the patient, discussion during interdisciplinary treatment rounds, risk assessment, and documentation in the electronic health record. Overall, I spent a total of 60 minutes with this case including review of chart records, review of labwork, review of EKG QTc, direct evaluation of the patient at bedside, counseling the patient, discussion of the patient with the Nurse and with the hospitalist provider, discussion with the psychiatric liason during clinical rounds and documentation in the electronic health record. (1) Alcohol use disorder: (2) Depression, unspecified: (3) Anxiety: Plan -Can discontinue 1-on-1 -Consider initiation of Wellbutrin XL 150mg daily for depression once he is through acute alcohol withdrawal and no longer at lower seizure threshold; reviewed possibility this could increase anxiety but he found it very helpful in the past for depression and without any worsening of anxiety; if anxiety worsens then would trial an SSRI instead -Consideration for initation of naltrexone 50mg daily with dinner for alcohol use disorder -Option to utilize gabapentin 300mg TID prn for anxiety and alcohol use disorder (off-label) if anxiety becomes more prominent symptom in the future -Psychiatric liason will provide resources on local mental health services and substance use services and attempt to set them up with outpatient case picker -Patient is not an imminent danger to self or others and does not meet criteria for involuntary psychiatric commitment -Continue AWSS as well as thiamine and folic acid Psych History Identifying Data 43 yo man with a history of depression, alcohol use admitted medically for alcohol withdrawal and suicidal ideation. Psychiatry consulted for risk assessment and recommendations. Chief Complaint "I would never do that, my son needs me". History of Present Illness Emil was admitted medically for alcohol withdrawal after presenting to the hospital with elevated ALPA and reporting depression and SI. Today, after two days of treatment for alcohol intoxication and withdrawal, he denies any SI and reports he would never do that due to his son who is a strong reason for living and significant deterrent. He has a history of depression and alcohol use, having started drinking at age 13. At times has only had alcohol on the weekends, feels he started drinking more due to depression and financial stress. He has previously taken prozac and wellbutrin for his depression a few years ago, with wellbutrin being more helpful but stopped it after a few months "because life was good" and after that never saw a provider again to restart the medication so "I just ran out of it". He has never attempted suicide or been psychiatrically hospitalized. He did see a psychiatrist vs therapist following his mother's . He has no current outpatient providers. He is interested in outpatient resources for mental health and alcohol use once he gets insurance through his new job. He reports using alcohol to numb his feelings and escape from his depression. He acknowledges that excessive alcohol consumption can exacerbate his depressive symptoms. His sleep was not significantly affected by his alcohol use, but he does experience anxiety, primarily related to financial concerns. He is not currently interested in residential treatment for his alcohol use, as he fears losing his job and possessions. He is open to considering rehab if he loses everything and is informed about critical access hospital funding for such treatment if he would continue to not have insurance. He has no history of seizures and has not taken medications specifically for alcohol use, such as naltrexone or gabapentin. Allergies Allergy/AdvReac Type Severity Reaction Status Date / Time No Known Allergies Allergy Verified 10/12/21 10:34 Home Medications Medication Instructions Recorded Confirmed Type No Known Home Medications 11/06/23 11/06/23 History Patient History Medical History Meningitis Surgical History H/O hand surgery Family History Mother , age 59 of COPD COPD (chronic obstructive pulmonary disease) Social History Smoking Status: Current every day smoker Tobacco Type: Cigarettes packs per day: 1; Cigarettes Per Day: 1 pack; Second Hand Exposure: Yes; Do You Dip or Chew Tobacco: Yes; Hx Alcohol Use: Yes Alcohol type: hard liquor Alcohol Intake Frequency: 4 or More x per/Week Alcohol Intake Frequency Comment: approximately 10 drinks per weekend Hx Substance Use: Yes Last Used Substance: Days (ago) Preferred Language: Vietnamese Communication Ability: Effective Mat Man Required: No Beliefs That Will Affect Care: None Current Living Situation: Alone current occupational status: employed 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 Feels Safe at Home: Yes Assistive Devices: None Physical Exam Psychiatric: Orientation: alert and oriented x 3 Apperance: appropriately dressed and appropriately groomed Eye Contact: good eye contact Motor Behavior: no abnormal motor movements Speech: normal rate/rhythm/volume of speech Affect: + constricted affect Mood: + depressed mood Thought Process: goal directed thought process Thought Content: reality based without delusions Suicidal Thoughts: denies suicidal thoughts Homicidal Thoughts: denies homicidal thoughts Hallucinations: no auditory hallucinations and no visual hallucinations Cognition: recent memory grossly intact, remote memory grossly intact, attention grossly intact and language grossly intact Es timated Intelligence: consistent with education level Insight: + fair insight Judgment: + fair judgement Vital Signs (Past 24 Hours): Last Vital Signs Temp 36.5 C 11/08/23 12:00 Pulse 99 H 11/08/23 12:00 Resp 17 11/08/23 12:00 BP 153/111 H 11/08/23 12:00 Pulse Ox 92 11/08/23 12:00 O2 Del Method Room Air 11/08/23 12:00 Results & Data (PSY) Medications Administered Chlordiazepoxide HCl (Chlordiazepoxide Hcl 25 Mg Cap) 100 mg PO TID ALICIA Stop: 12/07/23 13:59 Last Admin: 11/08/23 14:36 Dose: 100 mg Documented By: Admin: 11/08/23 07:53 Dose: 100 mg Documented By: Admin: 11/07/23 20:37 Dose: 100 mg Documented By: Admin: 11/07/23 14:46 Dose: 100 mg Documented By: DORA Folic Acid (Folic Acid 1 Mg Tab) [facility] [place] Stop: 12/07/23 08:59 Last Admin: 11/08/23 07:34 Dose: 1 mg Documented By: Admin: 11/07/23 07:58 Dose: 1 mg Documented By: DORA Thiamine HCl 500 mg/ Sodium (Chloride) 55 mls @ 210 mls/hr IV QAM [facility] Stop: 12/07/23 08:59 Last Infusion: 11/08/23 08:34 Dose: Infused Documented By: Admin: 11/08/23 07:34 Dose: 55 mls/hr Documented By: Infusion: 11/07/23 08:30 Dose: Infused Documented By: Admin: 11/07/23 08:14 Dose: 210 mls/hr Documented By: DORA Lorazepam 1 mg/ Syringe 1 mls @ 2 mls/min IV UD PRN; Protocol PRN Reason: EtOH Withdrawal AWSS Score 6,7 Stop: 12/07/23 07:52 Last Admin: 11/08/23 12:41 Dose: 2 mls/min Documented By: Admin: 11/07/23 20:55 Dose: 2 mls/min Documented By: LILLIE Miscellaneous (Remove Nicoderm Patch) 1 each N/A DAILY@[id number] [facility] Stop: 12/07/23 08:58 Last Admin: 11/08/23 07:31 Dose: 1 each Documented By: Admin: 11/07/23 07:57 Dose: 1 each Documented By: DORA Nicotine (Nicotine 21 Mg/24 Hr Tdsy) 1 patch TD [facility] Stop: 12/07/23 08:59 Last Admin: 11/08/23 07:34 Dose: 1 patch Documented By: Admin: 11/07/23 07:58 Dose: 1 patch Documented By: DORA Coding Level of Care Code 22065 IN/OBS CONSULT LVL 4,60M Diagnoses Alcohol use disorder F10.90 Depression, unspecified F32.A Anxiety F41.9
[2023-11-08] MEDS: LORazepam 2 MG in SYRINGE 1 ML IV PRN (16:41)
[2023-11-09] MEDS ORDERED: PHENobarbitaL 30 MG TAB PO SCH (01:30)
[2023-11-09] MEDS ORDERED: chlordiazePOXIDE HCl 25 MG CAP PO SCH ×3 (06:00→21:00)
--- NOTE | 2023-11-09 06:32 | Hospitalist Progress Note ---
Date of Service November 09, 2023 Assessment & Plan (1) Alcohol withdrawal syndrome: (2) Suicidal ideation: (3) Tobacco use disorder: (4) Alcohol use disorder: (5) Hypertension: Plan Emil Hawley is a 43 year old male with a PMHx of AUD, polysubstance use, and suicidal ideation who presented presented on 11/06/23 for concerns of SI. ETOH was 509 on arrival. #Alcohol intoxication/withdrawal -Last drink 11/06/23 at 17:00. Drinks approximately 24.5 drinks per day Patient reports consistently drinking for the past 1 month. -Continue Thiamine 500 mg IV QAM, Continue folic acid 1 mg PO QAM - AWSS with Ativan PRN; required 2 mg ativan overnight - Chlordiazepoxide 100 mg PO TID ALICIA decreased to 100 mg BID today, can taper further or stop tomorrow if pt doing well through today/tonight - Seizure precautions #Alcohol Use Disorder -See above for plan #Suicidal ideation -One week of suicidal ideation, thoughts of slitting his wrists. -Patient reports that he mainly just wants to feel better and does not want to . He "wants to stick around for his son" -Maintain 1:1 observation -Suicide checks -Consider psych consult if this changes when pt is sober #Hypertension -overnight 150-180s/90-110s -In the context of acute alcohol withdrawal -Continue to monitor #Tobacco Use Disorder -Continue nicotine patch #History of Substance Use/BRYAN -Patient denies current substance use other than alcohol and marijuana -Tox screen positive for marijuana and ethyl alcohol on admission Admission and Anticipated Discharge Date Admission Date: November 06, 2023 Supervising Physician Co-Signing Physician Notes I personally examined the patient and verified all wills points of history and exam, discussed case, and agree with decision making with Dr Bender Patient sleeping comfortably. No new issues have arisen. Vitals noted, in general he is sleeping appears comfortable and in no distress. Heart rate controlled blood pressure elevated, breathing unlabored no tremulousness or sweats noted while he is at rest. Alcohol abuse and withdrawalthiamine, folate, start to slowly wean aggressive benzodiazepine regimen (which was built because he was starting to show rather significant withdrawal)serial exams and titrate regimen as needed. fortunately stable today in this regard Depression No need for inpatient mental health stay, unless the situation changes at all while he is still here, but will need outpatient depression management and follow-up. DVT prophylaxisambulation/SCDs for now. If his withdrawal worsens and/or he is more bedboundobviously then add pharmacologic prophylaxis. Subjective Emil Hawley is a 43 year old male with a PMHx of AUD, polysubstance use, and suicidal ideation who presented presented on 11/06/23 for concerns of SI. ETOH was 509 on arrival. Today, pt states he feels fine and is just a little frustrated that he is stuck here. He states he feels the nicotine patch is helping but he really wants to go outside since he has been stuck here and have a smoke. Did explain to him that he is of concern for seizures and advised him he is here for close monitoring as alcohol withdrawal can be very dangerous and he is less than 72 hours out from last drink so he is still not out of the window for severe withdrawal symptoms. Pt is frustrated by agreeable and understands he has felt relatively fine yesterday and today because we have been treating him. He has no questions or complaints today other than not wanting to be here and wanting to go outside. Review of Systems Review of Systems: Per HPI. Physical Exam Physical Exam: General:Alert, oriented, HEENT: Normocephalic, moist oral mucosa, Cardio: Regular rate and rhythm, no murmur, Resp:Lungs clear to auscultation b/l, no wheezes or rhonchi, Skin: Warm, pink, dry, Results & Data Results & Data Vital Signs (Past 12 Hours) Vital Signs Temp Pulse Pulse Resp BP Pulse Ox O2 Del Method 11/09/23 02:17 36.7 C 85 16 144/88 H 96 Room Air 11/08/23 23:19 89 11/08/23 22:41 36.5 C 94 H 25 H 162/83 H 95 Room Air 11/08/23 22:01 36.8 C 92 H 18 156/105 H 97 Room Air 11/08/23 19:20 Room Air Resident Activity Tracking Resident Involvement: Resident Care Provided Care Provided: Adult Hospital Medicine
[2023-11-09 08:12] LABS: Albumin Globulin Ratio 1.3 (0.9-2); Calcium 9.7 mg/dl (8.6-10.3); Creatinine Clr Calc Pharmacy 168.2 ml/min; Est GFR (African American) 137.9 ml/min; Globulin 3.1 gm/dl (2.5-4.0); Magnesium 1.9 mg/dl (1.7-2.4); Total Protein 7.1 gm/dl (6.0-8.3)
[2023-11-09 13:38] LABS: Marijuana Quant, GCMS Urine 41 ng/mL (<5)
--- NOTE | 2023-11-09 15:57 | Billing Data ---
Date of Service November 09, 2023 Coding Level of Care Code 53273 SUB INP/OBS CARE
[2023-11-09] MEDS: ACETAMINOPHEN 500 MG TAB PO PRN (16:14)
--- NOTE | 2023-11-09 19:37 | Discharge Summary ---
Date of Service November 09, 2023 Admission HPI Per Admitting Provider Emil Hawley is a 43yo male presenting with EtoH intoxication and suicidal ideation. Patient reports feeling very depressed. He relocated from [place] to the [facility] approximately 7 years ago at the behest of his . He and his have since (approximately 2.5 years ago). He feels very lonely and has no friends or family in this area. This evening he had suicidal thoughts. He reports thinking about cutting his wrists for the last week. He has no formal diagnosis of depression. He was seen by a Psychiatrist in 2014 after his mother and was placed on Prozac and Wellbutrin. He reports taking these medications for less than a year and has not been on any further antidepressant medications. He has had one prior suicidal gesture in the past - approximately 8 years ago while living in [place] he was thinking about jumping off of a bridge to end his life. He reports to me that he doesn't really want to , he just wants to feel better. Patient drinks EtOH regularly - daily over the last month with no breaks. He typically drinks 1 pint of vodka and 2-3 Four Lokos daily ((8 drinks/pint + (5.5 drinks/Four Dung x 3) = roughly 24.5 drinks/day). Last drink 11/06/23 at 17:00. He has had mild EtOH withdrawal in the past in the form of tremors but denies seizure or DTs. ER Course: Nicotine patch KCl 40mEq Admission Exam Per Admitting Provider General: patient resting comfortably, NAD, non-toxic in appearance, AA&O x 4 Skin: warm, dry, intact, no rashes or lesions HEENT: NC/AT, PERRL, EOMI, anicteric sclera, conjunctiva without injection, external ear normal to inspection and nontender, nares patent, moist mucus membranes, dentition intact, no oropharyngeal lesions, neck supple, trachea midline, no LAD, no thyromegaly, no JVD Heart: +S1/S2, regular, no m/r/g Lungs: equal air entry bilaterally, no rales/rhonchi/wheezes Abd: +BS, soft, NT/ND, no masses/organomegaly/ascites Ext: warm, 2+ pulses in UE/LE bilaterally, no clubbing/cyanosis or edema Neuro: nonfocal, patient AA&O x 4, speech intact, no facial droop, moving all extremities on command with equal strength 5/5 Principal Diagnosis Alcohol withdrawal Discharge Exam General:Alert and oriented, HEENT: Normocephalic, moist oral mucosa, Cardio: Regular rate and rhythm, no murmur, Resp:Lungs clear to auscultation b/l, no wheezes or rhonchi, Skin: Warm, pink, dry, Discharge Data Allergies Allergy/AdvReac Type Severity Reaction Status Date / Time No Known Allergies Allergy Verified 10/12/21 10:34 Consultations 11/06/23 23:21 ED Decision to Admit Stat 11/06/23 23:42 Consult Psychiatry Routine Hospital Course (1) Alcohol withdrawal syndrome: (2) Suicidal ideation: (3) Tobacco use disorder: (4) Alcohol use disorder: (5) Hypertension: Plan Emil Hawley is a 43 year old male with a PMHx of AUD, polysubstance use, and suicidal ideation who presented presented on 11/06/23 for concerns of SI. ETOH was 509 on arrival. #Alcohol intoxication/withdrawal - Last drink 11/06/23 at 17:00. Drinks approximately 24.5 drinks per day, patient reports consistently drinking for the past 1 month. - on AWSS protocol requiring progressively less ativan, last dose per protocol was 24 hours ago - was on Librium 100 mg TID, tapered to BID today and will recommend pt do librium taper on discharge as pt is insisting on discharge today - believe that he is using alcohol as a coping mechanism for his depression, pt agrees with this assessment and had extensive conversation with him about coping mechanisms - pt needs to follow-up with pcp on discharge for management of mental health and to assist him further in alcohol cessation #Alcohol Use Disorder -See above for hospital course #Suicidal ideation - One week of suicidal ideation, thoughts of slitting his wrists prior to admission - Patient reports that he mainly just wants to feel better and does not want to . He "wants to stick around for his son" - today, no further suicidal ideation, psych assessed him and he denies suicidal ideation #Tobacco Use Disorder -Continue nicotine patch #History of Substance Use/BRYAN -Patient denies current substance use other than alcohol and marijuana -Tox screen positive for marijuana and ethyl alcohol on admission Pt was seen this evening and insisted on discharge today. He states he understands the risks but he feels overwhelmed with all the stuff he knows he needs to do when he gets home and so despite the risk of withdrawal still being present he would like to go home. He has been stable the last 24 hours with no AWSS protocol ativan required but was on 100 mg TID librium only decreased to BID today. Still, pt understands risks and would like to go home. See attending attestation for further. Did advise that if he gets shaky at home or starts to get hallucinations that he immediately return to the hospital. Also advised he call the clinic tomorrow to set up with one of the [facility] resident providers for further management and will give a dose of librium tonight prior to discharge and send taper to pharmacy for pickup tomorrow. Advised pt repeatedly we would prefer if he at least stayed until tomorrow but do understand he does not want to stay any longer. Total Time Total Time Spent Total Time Spent (In Minutes): As per attending attestation. Discharge Plan Discharge Items Reason For Visit: EtOH intoxication, SI Follow-up/Referrals: PCP,NO [Primary Care Provider] - Addtl Attending Provider Instructions: Alcohol withdrawal - fortunately the withdrawal does seem to be letting up, but please do not take the false reassurance that you are "out of the tiwari" just yet. - It is reassuring that you have not needed the extra dosing of Ativan for about 24 hours, but you are still on a very large dose of Librium (chlordiaze poxide) to help suppress withdrawal symptoms - because of this, tonight, or at any point when we are reducing dosingif you feel worse/shaky/sweaty/heart racing/agitatedI would want you coming back for reassessment and ongoing management LISBET. As we discussed, the fact that you have not had hallucinations or delirium tremens is very reassuring, and makes it less likely that it will happen; at the same time I have had patients in alcohol withdrawal go from relatively good to completely delirious over an hourso there is still a small potential for true disastrous badness hereand with that in mind, I would be very cautious - we will taper off of the Librium (chlordiazepoxide) over the next weekideally you will be able to get into the office for follow-up with this and have more true guidance; at the same time, I have sent the prescription with what should be a reasonably good "autopilot" schedule on things. It will actually be 25 mg tablets, not the 50 mg tablets I thought we would be able to send (it looks like 50 mg tablets do not exist per pharmacy ordering software)so we will have you on 100 mg twice a day tomorrow (4 tablets in the morning, 4 tablets in the evening), and then Friday and on 50 mg twice a day (2 tablets in the morning, 2 tablets in the evening), and then Friday, Friday and Friday 25 mg twice a day (1 tablet in the morning, 1 tablet in the evening). Again at any point when the dose is being reduced if you feel worse I want you seen LISBET - Librium (chlordiazepoxide) is definitely a medication that impairs cognition/reflexes/thought processso definitely do not drive while you are on the Librium (chlordiazepoxide)(look at it the same as driving under the influence) and definitely do not do anything else that could put you in harm's way (like any machinery/ladders/other dangerous situations) - we will also have you on thiamine and folic acid for the foreseeable futurethese help replete vitamins that are often fairly deficient in folks who have struggled with alcohol (largely to protect your brain from the fact that the alcohol can have/effects that the vitamin depletion can have) depression - as we discussed, I really do not view you as a emiliano with an alcohol problem, I view you as a emiliano who has a bad depression problem and has found alcohol as the only really coping strategy that has covered the symptoms - Of course, the problem with that, is that alcohol to cover symptoms of depression does not fix the depression at all (usually it makes things worse on multiple levels both biochemical and social) and starts to lead to a lot of other chronic health problems (most predominantly neurologic and liver) - if you put the alcohol into the "bucket" of a depression coping strategyjust a maladaptive one, then you can start to look at the idea that other coping strategies could be more helpful and less harmful at the same time. ---> Active stress management: There is a lot of evidence, and I have seen the impact in my own life, that regular exercise (as well as "pop-off valve exercise") can be tremendously helpful in managing depression and anxiety. As we discussed, I tend to do running or biking on a daily basis, and hit a hockey puck or something similar as my "pop-off valve"; but that does not mean you have to copy what I do. I would definitely advise doing something as frequently as you can/something that you can do on a regular basis to help get out stress/depression, and start to stay ahead of things, and then also have another activity you can do whenever you feel so restless that you feel like you might explode or that you feel like you have to have a drink. This could be something like running and hockey, but could also be hiking and weightlifting, could be rockclimbing and hitting a punching bag, really what everthe idea of there being that you just want to do something regularly and have something else she can do whenever you feel extremely tense ---> quiet meditative stress management: Similarly, there is a lot of good evidence that going on the quiet side of our brain can be very useful in stress management as well. From most effective to least effective, techniques that are quite helpful are the following: Prayer or meditation (when people truly pray entering their problems over to God, or when people truly meditate to the point where they are almost outside of their own mind, these can be life alteringly beneficial in treating depression. The trick is just that both of these take a ton of practice to get to where they are truly helpfulso if you go down this road, realize you will have to work at it on a regular basis to develop the skills for it to really be a life-changing strategy). playing a musical instrument or dancing (while there are lots of activities that can be helpful with depression and stress management, the interplay of artistry and physical movement that happens with playing an instrument or dancing seems to have much more of a lasting benefit than other activitiesif you used to play an instrument, now would be a great time to start to do it on a regular basis again). Crafts/art (similar to an instrument or dance, but less effective, doing coloring books, doing crafts, painting, etc. definitely has a bit of a mind altering benefit for depression/anxiety, just less than prior meditation, and less then playing an instrument or dancing). Listening to music (if you have ever remembered a time where you "found just the right song" and it seemed to change her mood for a while, this is a good illustration of the benefit that can be had from listening to musicit is definitely not a permanent "life- changing" intervention, but can often change her mood in ways that are hard to explain for hours or even a whole day). Videogames (videogames never really change your mood or how you feel in a definitive way, but they have been proven to really "put your brain on pause" for a whileand if you think about how moods have their own natural ebb and flow, if you are having a bad day, really feel like you are going to drink, but can find your way to [employer] or world of [employer] or what ever, the hours that you can lose yourself in the game may allow enough time for the natural ebb and flow to take you from feeling like you have to drink to feeling like he wants to drink, which could be enough to get you through that moment). Breathing exercises (deep breathing or box breathing to my mind have never truly change someone's life, but can get you through a momentthink of it similar to playing a video game but much more short-lived, but also something that you can do absolutely anywhere). - Counseling: An absolute mainstay in helping someone through depression is some sort of talk based counseling. I have a huge advocate for this. We will ask our nurse navigator to try to get you set up with psychology/counselor/etc. here in town, but at the same time as we discussed, that is a field that is fairly low in supply and very high in demand, so sometimes the wait times are quite long. One of the few good things to come of the pandemic is that a lot of counseling services online are now very quickly and readily accessible. I would google "online depression therapy", or "online counseling services"and there will be several services that pop upyou can explore which of them seems to be the best fit, and it is quite possible that you would be able to start to see a counselor much sooner (my guess is it may be a month or 2 for a counselor [id number], and it might be as soon as the end of this week with a counselor online). The tricky thing with counseling is often it does get a bit uncomfortable as you are working through a lot of what drives the depressionthink of it as the hard work that you have to do to come out the other side in a better place. - Medications: We definitely think there would be benefit of getting you on medicationsprobably something like Wellbutrin and Lexapro. The problem right now is that any medication can make someone slightly more prone to seizures, and alcohol withdrawal can make people significantly more prone to seizuresso we really cannot safely start these medicines until it is clear that you are out of withdrawal. That said we would definitely like to start them as soon as it is clear you are out of withdrawal, which is part of why we will want to have you follow closely in the office. Medications are generally not the biggest piece of the puzzle in helping someone through depression, I usually tell people to assume that in a perfect scenario the medications help 20% at the most, but that can often be enough to help someone start to do the real things (above) that help put the depression into remission or at least make it more mild. Follow-up: Since we are not able to schedule your appointment tonight, tomorrow morning around 8 AM I want you to call [facility] [phone] and asked to be seen as soon as possible. We have 18 resident physicians who would all do a really good job taking care of you, so I would really get in with whoever they can get you in with the soonest. If it is possible to speed things up by having people who are familiar with your situation here, the following residents are going to at least be somewhat aware of your situation or have directly taken care of you here: Dr Wasserman, Dr Bender, Dr Pate, Dr Carballo, Dr Jurado Pending Studies at Discharge: No Medications and DC Order Prescriptions: New folic acid 1 mg Tablet 1 mg PO QAM Qty: 30 0RF thiamine HCl (vitamin B1) 100 mg tablet 100 mg PO DAILY Qty: 30 0RF chlordiazepoxide HCl 25 mg capsule 25 mg PO BID Qty: 26 0RF Rx Instructions: take 100mg (4 tabs) bid on 11/09, then 50mg (2 tabs) BID 11/10-, then 25mg (1 tab) bid 6 Admission Data Admit Date/Time: 11/06/23 23:42 Attending Provider: Justin Berrios Admit Provider: Arlene Marin Primary Care Provider: PCP,NO Other Providers: Imani Segundo; Emil Wilks; Uday Le Jr; Jadyn Petty; Alla Joel; Carter Cornejo; Arlene Marin Supervising Physician Co-Signing Physician Notes I personally examined the patient and verified all wills points of history and exam, discussed case, and agree with decision making with Dr Bender See progress note, see above, see discharge instructions personally prepared by myself. Patient wants to leave against advice. Dr. Bender and myself both explained concerns to patient as far as likely but not clearly out of the tiwari for withdrawal, as well as the fact that we can far better coordinate care for management for his depression tomorrow given that we will be able to get things scheduled/his pharmacy would be open/etc. He expressed understanding of all of this but still a strong desire to leave even if it was against advice. In harm reduction model, I explained to him that I did feel this was not in his best interest for several reasons (risk of worsening withdrawal, better ability to coordinate and streamline the treatment of his depression), but that we would definitely try to set things up for him to succeed as best as possible even if he is leaving against our advice. - Librium taper - extensive discussion on comprehensive management of depression (will ask nurse navigator to assist in getting him in with the office, but also gave him the number, and will ask nurse navigator to try to get him in with counseling, but also asked him to seek online therapy services because they may be able to see him faster), discussed self-management tools, discussed medications and the current risk of precipitating seizure, but being able to start medicine soon as it is clear he is out of withdrawal. - Implored him to return if anything seems worsening, or if he even simply changes his mind Resident Activity Tracking Resident Involvement: Resident Care Provided Care Provided: Adult Hospital Medicine
[2023-11-09] MEDS: chlordiazePOXIDE HCl 25 MG CAP PO ONE (19:45)
--- NOTE | 2023-11-09 20:25 | Billing Data ---
Date of Service November 09, 2023 Coding Level of Care Code 14678 IN/OBS DISCH 30 MIN/LESS
[2023-11-10] MEDS ORDERED: PHENobarbitaL 30 MG TAB PO SCH (13:30)
== END 2023-11-09 20:00 | disposition left against medical advice (07) | DRG 880 ==
LOC: ED 18:04 → 2E 23:42 → SUATTDRO 23:42 → 2E 11-07 01:00